=== PATIENT | female | born 1995 | race Caucasian/White ===

== ENCOUNTER 2024-04-10 12:38 | Emergency (ER) | payer OTHER, SELFPAY ==
--- OUTSIDE RECORDS SUMMARY | 2024-04-10 12:44 | XMS REPORT | Continuity of Care Document ---
Author Name Unknown Address [address] [place] [address] [address] [facility] Address [address] [facility] 1 [address] [place] [address] Care Team Providers Care Child Health Associate Name Role Phone PCP, PATIENT DOES NOT HAVE A Primary Care Physic nelida Unavailable VITO PEDROZA Attending Clinician Unavail able MCKAYLA AYERS Attending Clinician Unavaila ble Visit, Elisa Nurse Attending Clinician Unava Mckayla Williamson CNM Attending Clinician [phone] TAE JANG Attending Clinician Unavailabl Tae Santos MD Attending Clinician [phone] Tom Walker MD, Mike Attending Clinician + Kimberlyn Pena MD Attending Clinician [phone] Mekhi COHEN, Jonelle Garcia Attending Clinicia n NAEEM CANALES Attending Clinician Unavailable Vito Solomon Attending Clinician + Lab, Elisa Attending Clinician Unavailable DEAN LARSON Attending Clinician Unavailable Risk, Qda-Qcouk-Gc/High Attending Clinician Unav ailable Dean Miner Attending Clinician [phone] TIERNEY PALOMO Attending Clinician Unavailable TIERNEY PALOMO Attending Clinician Unavailable 1, [facility] Attending Clinician Tierney Campos MD Attending Clinician [phone] CATARINA BENTLEY Attending Clinician CATARINA Bradford Attending Clinician Unavaildat e Doctor Unassigned, [place] Attending Clinician U navailable Lab, Ang - Db Attending Clinician Unavailable TOM BENJAMINGATITO, MIKE Attending Clinician Unav ailable DICANDRIA_LASHAWN Attending Clinician Yony Martel DO Attending Clinician [phone] TAE JANG Admitting Clinician Tae Tran MD Admitting Clinician [phone] MERY_LASHAWN Admitting Clinician Swapnil muse Payers Payer Name Policy Type Policy Number Effective Date Expirati on Date Source [facility] STATE [id number] 2016 00:00:00 [facility] [id number] 2017 00:00:00 [place] [id number] 2023 00:00:00 2023 00:00:00 Problems Condition Name Condition Details Condition Category Status Onset Date Resolution Date Last Treatment Date Treating Clinician Comments Source Pre-eclamp abisai without severe features in third trimester Pre-eclamp abisai without severe features in third trimester Disease Active 01-23 00:00: 00 [facility] 39 weeks gestation of 39 weeks gestation of Disease Active 01-22 00:00: 00 [facility] Morbid obesity with body mass index of 40.0-49.9 Morbid obesity with body mass index of 40.0-49.9 Disease Active 01-22 00:00: 00 [facility] Positive GBS test Positive GBS test Disease Active 01-08 00:00: 00 Overview: Formattin g of this note might be different from the original. Address intrapart [facility] Anemia of mother in , antepartum Anemia of mother in , antepartum Disease Active 5-23 00:00: 00 [facility] Abnormal maternal glucose tolerance, antepartum Abnormal maternal glucose tolerance, antepartum Disease Active 3-14 00:00: 00 Overview: Formattin g of this note might be different from the original. Passed 3hr [facility] Abnormal O'Erazo glucose challenge test, normal 3 hr GTT, antepartum Abnormal O'Erazo glucose challenge test, normal 3 hr GTT, antepartum Disease Active 314 00:00: 00 Overview: Formattin g of this note might be different from the original. Passed 3hr [facility] Gonorrhea affecting Gonorrhea affecting Disease Active 10-22 00:00: 00 Overview: Formattin g of this note might be different from the original. Adenike neg [facility] Trichomona l vaginitis in Trichomona l vaginitis in Disease Active 2022-08 00:00: 00 Overview: Formattin g of this note might be different from the original. Neg adenike [facility] GBS (group B streptococ cus) UTI complicati ng GBS (group B streptococ cus) UTI complicati ng Disease Active 2022-08 00:00: 00 Overview: Formattin g of this note might be different from the original. Adenike neg [facility] Supervisio n of high-risk Supervisio n of high-risk Disease Active 2022-08 00:00: 00 [facility] History of miscarriag e History of miscarriag e Disease Active 2022-08 00:00: 00 [facility] History of drug use History of drug use Disease Active 2022-08 00:00: 00 Overview: Formattin g of this note might be different from the original. Marijuana , methLast used 2x months ago [facility] Pain pelvic Pain pelvic Disease Active 2016-08 00:00: 00 [facility] Cyst of right ovary Cyst of right ovary Disease Active 2016-08 00:00: 00 [facility] Overweight (BMI 25.0-29.9) Overweight (BMI 25.0-29.9) Disease Active 09-23 00:00: 00 [facility] Obesity in Obesity in Disease Active 2017-0 2-10 00:00: 00 [facility] Encounter for contracept bala management , unspecifie d type Encounter for contracept bala management , unspecifie d type Disease Resolve d 2016- 0-10 00:00: 00 2023-07-10 00:00:00 2023-07-10 13:53:38 [facility] Chlamydia infection affecting Chlamydia infection affecting Disease Resolve d 2-13 00:00: 00 2023-07-10 00:00:00 2023-07-10 13:53:45 [facility] High risk , antepartum High risk , antepartum Disease Resolve d 2-10 00:00: 00 2023-07-10 00:00:00 2023-07-10 13:53:37 [facility] Allergies, Adverse Reactions, Alerts Allergy Name Allergy Type Status Severity Reaction(s) Onset Date Inactive Date Treating Clinician Comments Source NO KNOWN ALLERGIE S Drug Class Active [facility] Social History Social Habit Start Date Stop Date Quantity Comments Source ASSERTION 2023-05-09 00:00:00 [facility] History of tobacco use 2013-09-23 00:00:00 Cigarette Smoker [facility] Exposure to SARS-CoV-2 (event) Not sure [facility] History SDOH Alcohol Frequency [facility] History SDOH Alcohol Std Drinks [facility] History SDOH Alcohol Binge [facility]-years 2024-02-01 00:00:00 2024-02-01 00:00:00 [facility] Alcoholic beverage intake 2024-02-01 00:00:00 2024-02-01 00:00:00 Ex-drinker (finding) [facility] Cigarettes smoked current (pack per day) - Reported 2024-02-01 00:00:00 2024-02-01 00:00:00 [facility] Tobacco use and exposure 2024-02-01 00:00:00 2024-02-01 00:00:00 Smokeless tobacco non-user [facility] History of Social function 2024-01-26 00:00:2024-01-26 00:00:00 [facility] Alcohol intake 2023-10-25 00:00:00 2023-10-25 00:00:00 Ex-drinker (finding) [facility] Alcohol Comment 2016-09-23 00:00:00 2016-09-23 00:00:00 lst drank 3 days ago. [facility] Sex assigned at 1995 00:00:00 1995 00:00:00 [facility] Smoking Status Start Date Stop Date Source Ex-smoker 2024-02-01 00:00:00 2024-02-01 00:00:00 [facility] Occasional tobacco smoker 2016-09-23 00:00:00 [facility] Medications Ordered Medication Name Filled Medication Name Start Date Stop Date Current Medication? Ordering Clinician Indication Dosage Frequency Signature (SIG) Comments Components Source docusate (COLACE) capsule 200 mg 01-25 14:00: 00 Yes 200mg 200 mg, Oral, DAILY, First dose on Mon01/26/24 at 0900, Until Discontinu ed, Routine [facility] vitamin w/FA tablet 01-25 00:00: 00 Yes [id number] 1{tbl} Take 1 tablet by mouth in the morning. [facility] docusate 100 mg capsule 01-25 00:00: 00 Yes [id number] 200mg Take 2 capsules by mouth once daily as needed for Constipati on. [facility] ferrous sulfate 325 mg (65 mg iron) tablet 01-25 00:00: 00 Yes [id number] 325mg Take 1 tablet by mouth in the morning. [facility] ibuprofen 800 mg tablet 01-25 00:00: 00 Yes [id number] 800mg Take 1 tablet by mouth every 8 (eight) hours as needed (pain). Take with food or milk. [facility] acetaminoph en 500 mg tablet 01-25 00:00: 00 Yes [id number] 1000mg Take 2 tablets by mouth every 8 (eight) hours as needed for Pain. [facility] oxyCODONE 5 mg immediate release tablet 01-25 00:00: 00 02-02 04:59 :00 Yes [id number] 5mg Take 1 tablet by mouth every 6 (six) hours as needed (pain) for up to 7 days. Indication s: acute pain [facility] simethicone (GAS RELIEF (SIMETHICON E)) chewable tablet 160 mg 01-24 19:00: 00 Yes 160mg 160 mg, Oral, TID, First dose on Mon01/25/24 at 1400, Until Discontinu ed, Routine [facility] ibuprofen (IBU) tablet 800 mg 01-24 18:00: 00 Yes 800mg 800 mg, Oral, Q8HA1, First dose on Mon01/25/24 at 1300, Until Discontinu ed, Routine [facility] acetaminoph en (TYLENOL) tablet 1,000 mg 01-24 15:15: 00 Yes 1000mg 1,000 mg, Oral, Q8H, First dose on Mon01/25/24 at 1015, Until Discontinu ed, Routine [facility] rho(D) immune globulin (HYPERRHO/R HOGAM) syringe 300 mcg 01-24 15:09: 57 Yes 300ug [facility] oxyCODONE immediate release tablet 5 mg 01-24 15:09: 50 Yes 5mg 5 mg, Oral, Q6HPRN, Starting on Mon01/25/24 at 1009, Until Discontinu ed, Routine, Pain (scale 7-10), seafood 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 member approving Restricted medication : OBYWHITE [facility] diphenhydrA MINE (BENADRYL) injection 25 mg 01-24 15:09: 50 Yes 25mg [facility] diphenhydrA MINE (BENADRYL) tablet 25 mg 01-24 15:09: 50 Yes 25mg [facility] ondansetron (ZOFRAN (PF)) injection 4 mg 01-24 15:09: 50 Yes 4mg 4 mg, Slow IV Push, Q8HPRN, Starting on Mon01/25/24 at 1009, Until Discontinu ed, Routine, Nausea and Vomiting (N/V) [facility] bisacodyL (DULCOLAX) suppository 10 mg 01-24 15:09: 50 Yes 10mg [facility] magnesium hydroxide (MILK OF MAGNESIA) 400 mg/5 mL suspension 30 mL 01-24 15:09: 50 Yes 30mL [facility] lactated ringers IV infusion 1,000 mL 01-24 15:09: 50 01-24 21:13 :00 No 1000mL at 125 mL/hr, 1,000 mL, IV Infusion, PRN, 1 dose, Starting on Beth 01/25/24 at 1009, Until Beth 01/25/24 at 1613, Routine [facility] ketorolac (TORADOL) injection 30 mg 01-24 15:05: 38 01-24 17:46 :00 No 30mg 30 mg, Slow IV Push, PRN, 1 dose, Starting on Beth 01/25/24 at 1005, Until Beth 01/25/24 at 1246, Routine, Pain (scale 4-6) [facility] naloxone (NARCAN) injection 0.4 mg 01-24 14:56: 20 01-26 14:55 :20 Yes .4mg 0.4 mg, Slow IV Push, PRN - SEE INSTRUCTIO NS, Starting on Beth 01/25/24 at 0956, Until 01/27/24 at 0955, Routine, Sedation/R espiratory Depression , Analgesia Recovery [facility] diphenhydrA MINE (BENADRYL) injection 25 mg 01-24 14:56: 20 01-25 23:55 :37 Yes 25mg 25 mg, Slow IV Push, Q4HPRN, Starting on Beth 01/25/24 at 0956, Until Mon01/26/24 at 1855, Routine, Itching [facility] sodium citrate-cit shane acid (BICITRA) 500-334 mg/5 mL solution 30 mL 01-24 14:00: 00 01-24 13:28 :00 No 30mL 30 mL, Oral, ONCE, 1 dose, On Mon01/25/24 at 0900, Routine [facility] acetaminoph en (TYLENOL) tablet 1,000 mg 01-24 13:09: 00 01-24 13:28 :00 No 1000mg 1,000 mg, Oral, ONCE, 1 dose, On Mon01/25/24 at 0815, Routine [facility] ondansetron (ZOFRAN (PF)) injection 4 mg 01-24 01:45: 00 01-24 01:08 :00 No 4mg 4 mg, Slow IV Push, ONCE, On Mon01/24/24 at 2044, For 1 dose, Doses of ondansetro n 16 mg and above need to be administer ed via IV piggyback. For Dose >=24mg ECG monitoring is advisable. [facility] acetaminoph en (TYLENOL) tablet 1,000 mg 01-24 01:45: 00 01-24 01:07 :00 No 1000mg 1,000 mg, Oral, ONCE, 1 dose, On Mon01/24/24 at 2045, Routine [facility] terbutaline (BRETHINE) injection 0.25 mg 01-23 15:30: 00 01-23 14:35 :00 No .25mg 0.25 mg, Intravenou s, ONCE, 1 dose, On Mon01/24/24 at 1030, Routine [facility] ondansetron (ZOFRAN (PF)) injection 4 mg 01-23 10:45: 00 01-23 10:00 :00 No 4mg 4 mg, Slow IV Push, ONCE, On Mon01/24/24 at 0545, For 1 dose, Doses of ondansetro n 16 mg and above need to be administer ed via IV piggyback. For Dose >=24mg ECG monitoring is advisable. [facility] alum-mag hydroxide-s imeth (MAG-AL PLUS) 200-200-20 mg/5 mL suspension 30 mL 01-23 06:25: 06 01-24 16:25 :51 No 30mL 30 mL, Oral, Q6HPRN, Starting on Mon01/24/24 at 0125, Until Mon01/25/24 at 1125, Routine, Indigestio n [facility] oxytocin (PITOCIN) 30 units in NS 500 mL IV infusion 01-23 05:47: 02 01-24 13:48 :31 No 2mU/min at 2-40 mL/hr, IV Infusion, TITRATE, Starting on Mon01/24/24 at 0047, Until Mon01/25/24 at 0848, MARY [facility] lactated ringers IV infusion 500 mL 01-23 02:00: 00 01-23 01:49 :40 No 500mL at 999 mL/hr, 500 mL, IV Infusion, ONCE, 1 dose, On Mon01/23/24 at 2100, Routine [facility] ondansetron (ZOFRAN (PF)) injection 4 mg 01-23 01:45: 00 01-23 00:55 :00 No 4mg 4 mg, Slow IV Push, ONCE, On Mon01/23/24 at 2044, For 1 dose, Doses of ondansetro n 16 mg and above need to be administer ed via IV piggyback. For Dose >=24mg ECG monitoring is advisable. [facility] ropivacaine 0.2 % (NAROPIN (PF)) epidural infusion 01-23 01:41: 00 Yes Epidural, CONTINUOUS PRN, Starting on Mon01/23/24 at 2040, Until Discontinu ed, Routine, Intra-op [facility] lidocaine-e pinephrine (XYLOCAINE W/EPINEPHRI NE) 1.5 %-1:200,000 injection 01-23 01:36: 00 Yes Epidural, ONCE INTRA PROCEDURE, Starting on Mon01/23/24 at 2035, Until Discontinu ed, Routine, Intra-op [facility] lidocaine in NaCl,iso-os mo(PF) 100 mg/10 mL (1 %) injection syringe 01-23 01:25: 00 Yes Slow IV Push, ONCE INTRA PROCEDURE, Starting on Mon01/23/24 at 2025, Until Discontinu ed, Routine, Intra-op [facility] lactated ringers IV infusion 500 mL 01-23 01:09: 14 01-23 14:40 :49 No 500mL at 999 mL/hr, 500 mL, IV Infusion, PRN - SEE INSTRUCTIO NS, 1 dose, Starting on Mon01/23/24 at 2008, Until Mon01/24/24 at 0940, Routine [facility] sodium citrate-cit shane acid (BICITRA) 500-334 mg/5 mL solution 30 mL 01-23 01:09: 14 01-23 01:18 :00 No 30mL 30 mL, Oral, PRE-PROCED URE ONCE, 1 dose, Starting on Mon01/23/24 at 2008, Until Mon01/23/24 at 2018, Routine, Surgery/Pr ocedure [facility] morpHINE (2 mg/mL) injection 5 mg 01-23 00:30: 00 01-22 23:50 :00 No 5mg 5 mg, Slow IV Push, ONCE, 1 dose, On Mon01/23/24 at 1930, Routine [facility] misoprostol (CYTOTEC) quarter-tab let 25 mcg 01-22 23:45: 00 01-22 23:45 :00 No 25ug 25 mcg, Vaginal, ONCE, 1 dose, On Mon01/23/24 at 1845, Routine [facility] lactated ringers IV infusion 500 mL 01-22 22:07: 10 01-24 16:25 :51 No 500mL at 999 mL/hr, 500 mL, IV Infusion, PRN - SEE INSTRUCTIO NS, Starting on Mon01/23/24 at 1707, Until Beth 01/25/24 at 1125, Routine [facility] D5W-LR IV infusion 1,000 mL 01-22 22:07: 10 01-24 16:25 :51 No 1000mL at 1-125 mL/hr, IV Infusion, TITRATE, Starting on Mon01/23/24 at 1707, Until Mon01/25/24 at 1125, Routine [facility] ferrous sulfate 325 mg (65 mg iron) tablet 01-03 00:00: 00 01-25 00:00 :00 No [id number] 325mg Take 1 tablet by mouth in the morning and 1 tablet in the evening. [facility] ascorbic acid, vitamin C, 500 mg tablet 01-03 00:00: 00 01-25 00:00 :00 No [id number] 500mg Take 1 tablet by mouth in the morning and 1 tablet at noon and 1 tablet in the evening. [facility] cefTRIAXone (ROCEPHIN) injection 500 mg 10-23 05:00: 00 10-24 19:18 :00 No [id number] 500mg 500 mg, Intramuscu lar, ONCE, 1 dose, On Mon10/24/23 at 0000, Routine
Reason for Anti-Infec tive: Documented Infection< br>Documen emre Infection Site: Pelvic
Duration of Therapy: Other (see Comments) [facility] magnesium oxide 400 mg (241.3 mg magnesium) tablet 09-27 00:00: 00 12-26 04:59 :00 No [id number] 400mg Take 1 tablet by mouth in the morning for 90 days. [facility] PNV 67-iron ps-folate no.1-dha (VITAFOL ULTRA) 29 mg iron- 1 mg-200 mg Cap 09-27 00:00: 00 10-27 04:59 :00 No [id number] 1{tbl} Take 1 tablet by mouth in the morning for 30 days. [facility] metroNIDAZO LE 500 mg tablet 09-13 00:00: 00 09-14 05:59 :00 No [id number] 2000mg Take 4 tablets by mouth once now for 1 dose. [facility] vitamin w/FA tablet 2022-08 00:00: 00 2024- 06-14 00:00 :00 No [id number] 1{tbl} Take 1 tablet by mouth in the morning. [facility] metroNIDAZO LE 500 mg tablet 2022-08 2-06 00:00: 00 07-20 05:59 :00 No [id number] 2000mg Take 4 tablets by mouth once now for 1 dose. [facility] ampicillin 500 mg capsule 2022-08 00:00: 00 07-23 05:59 :00 No [id number] 500mg Take 1 capsule by mouth 4 (four) times daily for 10 days. [facility] multivitami n ( VITAMIN) tablet 2022-08 00:00: 00 08-11 00:00 :00 No [id number] 1{tbl} Take 1 tablet by mouth in the morning. [facility] HYDROcodone -acetaminop hen (NORCO) 10-325 mg tablet 1 tablet 2019-08 16:15: 00 06-23 15:08 :00 No 1{tbl} 1 tablet, Oral, ONCE, 1 dose, 06/23/20 at 1015, Routine [facility] iohexol (OMNIPAQUE 350 BULK-150 mL) injection 120 mL 2019-08 15:15: 00 06-23 14:56 :00 No 120mL 120 mL, Intravenou s, ONCE, 1 dose, 06/23/20 at 0915, Routine [facility] ondansetron (ZOFRAN (PF)) injection 4 mg 2019-08 15:00: 00 06-23 14:08 :00 No 4mg 4 mg, Slow IV Push, ONCE, 1 dose, 06/23/20 at 0900, Routine [facility] alum-mag hydroxide-s imeth (MAALOX PLUS / MAG-AL PLUS) 200-200-20 mg/5 mL suspension 30 mL 2019-08 14:30: 00 06-23 14:30 :00 No 30mL 30 mL, Oral, ONCE, 1 dose, 06/23/20 at 0830, MARY [facility] NaCl 0.9% (NS) bolus infusion 500 mL 2019-08 14:00: 00 06-23 15:32 :00 No 500mL at 999 mL/hr, 500 mL, IV Infusion, ONCE, 1 dose, Mon06/23/20 at 0800, STAT [facility] sodium chloride (NS) injection 5 mL 2019-08 13:51: 36 Yes 5mL 5 mL, Intravenou s, PRN, Starting Mon06/23/20 at 0751, Until Discontinu ed, Routine, IV line flushing [facility] dicyclomine (BENTYL) 10 mg capsule 2019-08 00:00: 00 Yes [id number] 10mg Take 1 capsule by mouth every 8 (eight) hours as needed for Abdominal pain. [facility] ondansetron 4 mg disintegrat ing tablet 2019-08 00:00: 00 Yes [id number] 4mg Take 1 tablet by mouth every 8 (eight) hours as needed for Nausea and Vomiting (N/V). [facility] omeprazole 20 mg capsule 2019-08 00:00: 07-24 05:59 :00 No [id number] 20mg Take 1 capsule by mouth daily for 30 days. [facility] acetaminoph en-codeine (TYLENOL-CO DEINE #3) 300-30 mg tablet 2019-08 00:00: 00 06-27 05:59 :00 No [id number] 1{tbl} Take 1 tablet by mouth every 4 (four) hours as needed for Pain (scale 7-10) for up to 3 days. Indication s: acute pain [facility] naproxen 250 mg tablet 2016-08 00:00: 00 Yes [id number] 250mg Take 1 tablet by mouth 2 (two) times daily with meals. [facility] azithromyci n 500 mg tablet 09-26 00:00: 00 Yes 1000mg Take 2 tablets by mouth daily. [facility] Vit-Iron Fumarate-FA (RIGHT STEP VITAMINS) 27-0.8 mg per tablet 09-23 00:00: 00 Yes 1{tbl} Take 1 tablet by mouth daily. [facility] Vit-Iron Fumarate-FA (RIGHT STEP VITAMINS) 27-0.8 mg per tablet 09-23 00:00: 00 08-11 00:00 :00 No 1{tbl} Take 1 tablet by mouth daily. [facility] Immunizations Ordered Immunization Name Filled Immunization Name Date Status Comments Source TDAP Unknown Completed [facility] TDAP Unknown Completed [facility] TDAP Unknown Completed [facility] TDAP Unknown Completed [facility] TDAP Unknown Completed [facility] TDAP Unknown Completed [facility] TDAP Unknown Completed [facility] TDAP Unknown Completed [facility] TDAP Unknown Completed [facility] TDAP Unknown Completed [facility] TDAP Unknown Completed [facility] TDAP Unknown Completed [facility] TDAP Unknown Completed [facility] TDAP Unknown Completed [facility] TDAP Unknown Completed [facility] TDAP Unknown Completed [facility] Vital Signs Vital Name Observation Time Observation Value Comments S ource Systolic blood pressure 2024-02-01 15:18:00 138 mm[Hg] [facility] Diastolic blood pressure 2024-02-01 15:18:00 80 mm[Hg] [facility] Heart rate 2024-02-01 15:18:00 86 /min [facility] Body temperature 2024-02-01 15:18:00 36.44 [facility] Respiratory rate 2024-02-01 15:18:00 18 /min [facility] Body height 2024-02-01 15:18:00 162.6 cm [facility] Body weight 2024-02-01 15:18:00 101.742 kg [facility] BMI 2024-02-01 15:18:00 38.50 kg/m2 [facility] Systolic blood pressure 2024-01-26 20:47:00 122 mm[Hg] [facility] Diastolic blood pressure 2024-01-26 20:47:00 59 mm[Hg] [facility] Heart rate 2024-01-26 20:47:00 80 /min [facility] Body temperature 2024-01-26 20:47:00 36.83 [facility] Respiratory rate 2024-01-26 20:47:00 18 /min [facility] Oxygen saturation in Arterial blood by Pulse oximetry 2024-01-26 20:47:00 97 /min [facility] Body weight 2024-01-23 22:48:00 110.678 kg [facility] BMI 2024-01-23 22:48:00 41.88 kg/m2 [facility] Body height 2024-01-23 22:00:00 162.6 cm [facility] Systolic blood pressure 2024-01-25 16:32:00 134 mm[Hg] [facility] Diastolic blood pressure 2024-01-25 16:32:00 62 mm[Hg] [facility] Heart rate 2024-01-25 16:32:00 74 /min [facility] Body temperature 2024-01-25 16:32:00 36.5 [facility] Respiratory rate 2024-01-25 16:32:00 18 /min [facility] Oxygen saturation in Arterial blood by Pulse oximetry 2024-01-25 16:32:00 99 /min [facility] Body weight 2024-01-23 22:48:00 110.678 kg [facility] BMI 2024-01-23 22:48:00 41.88 kg/m2 [facility] Body height 2024-01-23 22:00:00 162.6 cm [facility] Systolic blood pressure 2024-01-17 20:43:00 132 mm[Hg] [facility] Diastolic blood pressure 2024-01-17 20:43:00 82 mm[Hg] [facility] Heart rate 2024-01-17 20:39:00 77 /min [facility] Body temperature 2024-01-17 20:39:00 35.94 [facility] Respiratory rate 2024-01-17 20:39:00 19 /min [facility] Body height 2024-01-17 20:39:00 157.5 cm [facility] Body weight 2024-01-17 20:39:00 107.82 kg [facility] BMI 2024-01-17 20:39:00 43.48 kg/m2 [facility] Systolic blood pressure 2024-01-10 20:37:00 130 mm[Hg] [facility] Diastolic blood pressure 2024-01-10 20:37:00 80 mm[Hg] [facility] Heart rate 2024-01-10 20:30:00 107 /min [facility] Body temperature 2024-01-10 20:30:00 35.83 [facility] Respiratory rate 2024-01-10 20:30:00 18 /min [facility] Body height 2024-01-10 20:30:00 157.5 cm [facility] Body weight 2024-01-10 20:30:00 104.055 kg [facility] BMI 2024-01-10 20:30:00 41.96 kg/m2 [facility] Systolic blood pressure 2024-01-03 20:17:00 123 mm[Hg] [facility] Diastolic blood pressure 2024-01-03 20:17:00 78 mm[Hg] [facility] Heart rate 2024-01-03 20:17:00 82 /min [facility] Body temperature 2024-01-03 20:17:00 36.17 [facility] Respiratory rate 2024-01-03 20:17:00 18 /min [facility] Body height 2024-01-03 20:17:00 157.5 cm [facility] Body weight 2024-01-03 20:17:00 102.15 kg [facility] BMI 2024-01-03 20:17:00 41.19 kg/m2 [facility] Systolic blood pressure 2023-12-20 20:34:00 124 mm[Hg] [facility] Diastolic blood pressure 2023-12-20 20:34:00 74 mm[Hg] [facility] Heart rate 2023-12-20 20:07:00 95 /min [facility] Body temperature 2023-12-20 20:07:00 36.17 [facility] Respiratory rate 2023-12-20 20:07:00 18 /min [facility] Body height 2023-12-20 20:07:00 157.5 cm [facility] Body weight 2023-12-20 20:07:00 100.245 kg [facility] BMI 2023-12-20 20:07:00 40.42 kg/m2 [facility] Oxygen saturation in Arterial blood by Pulse oximetry 2023-12-20 20:07:00 98 /min [facility] Systolic blood pressure 2023-12-07 19:56:00 138 mm[Hg] [facility] Diastolic blood pressure 2023-12-07 19:56:00 79 mm[Hg] [facility] Heart rate 2023-12-07 19:56:00 87 /min [facility] Body temperature 2023-12-07 19:56:00 35.83 [facility] Respiratory rate 2023-12-07 19:56:00 18 /min [facility] Body height 2023-12-07 19:56:00 157.5 cm [facility] Body weight 2023-12-07 19:56:00 96.163 kg [facility] BMI 2023-12-07 19:56:00 38.78 kg/m2 [facility] Systolic blood pressure 2023-11-23 19:53:00 130 mm[Hg] [facility] Diastolic blood pressure 2023-11-23 19:53:00 83 mm[Hg] [facility] Heart rate 2023-11-23 19:53:00 96 /min [facility] Body temperature 2023-11-23 19:53:00 35.89 [facility] Respiratory rate 2023-11-23 19:53:00 18 /min [facility] Body height 2023-11-23 19:53:00 157.5 cm [facility] Body weight 2023-11-23 19:53:00 93.26 kg [facility] BMI 2023-11-23 19:53:00 37.60 kg/m2 [facility] Systolic blood pressure 2023-11-08 20:07:00 118 mm[Hg] [facility] Diastolic blood pressure 2023-11-08 20:07:00 78 mm[Hg] [facility] Heart rate 2023-11-08 20:07:00 98 /min [facility] Body temperature 2023-11-08 20:07:00 35.72 [facility] Respiratory rate 2023-11-08 20:07:00 18 /min [facility] Body height 2023-11-08 20:07:00 157.5 cm [facility] Body weight 2023-11-08 20:07:00 89.268 kg [facility] BMI 2023-11-08 20:07:00 36.00 kg/m2 [facility] Systolic blood pressure 2023-10-25 19:00:00 129 mm[Hg] [facility] Diastolic blood pressure 2023-10-25 19:00:00 71 mm[Hg] [facility] Heart rate 2023-10-25 19:00:00 83 /min [facility] Body temperature 2023-10-25 19:00:00 36.17 [facility] Respiratory rate 2023-10-25 19:00:00 18 /min [facility] Body height 2023-10-25 19:00:00 157.5 cm [facility] Body weight 2023-10-25 19:00:00 86.183 kg [facility] BMI 2023-10-25 19:00:00 34.75 kg/m2 [facility] Systolic blood pressure 2023-10-20 16:52:00 118 mm[Hg] [place] [facility] Diastolic blood pressure 2023-10-20 16:52:00 70 mm[Hg] [facility] Heart rate 2023-10-20 16:52:00 79 /min [facility] Body temperature 2023-10-20 16:52:00 35.67 [facility] Respiratory rate 2023-10-20 16:52:00 18 /min [facility] Body height 2023-10-20 16:52:00 157.5 cm [facility] Body weight 2023-10-20 16:52:00 88.542 kg [facility] BMI 2023-10-20 16:52:00 35.70 kg/m2 [facility] Systolic blood pressure 2023-10-11 21:43:00 130 mm[Hg] [facility] Diastolic blood pressure 2023-10-11 21:43:00 64 mm[Hg] [facility] Heart rate 2023-10-11 21:43:00 78 /min [facility] Body temperature 2023-10-11 21:43:00 36.44 [facility] Respiratory rate 2023-10-11 21:43:00 18 /min [facility] Body height 2023-10-11 21:43:00 162.6 cm [facility] Body weight 2023-10-11 21:43:00 85.095 kg [facility] BMI 2023-10-11 21:43:00 32.20 kg/m2 [facility] Systolic blood pressure 2023-09-27 16:21:00 131 mm[Hg] [facility] Diastolic blood pressure 2023-09-27 16:21:00 80 mm[Hg] [facility] Heart rate 2023-09-27 16:21:00 95 /min [facility] Body temperature 2023-09-27 16:21:00 36.56 [facility] Respiratory rate 2023-09-27 16:21:00 18 /min [facility] Body height 2023-09-27 16:21:00 162.6 cm [facility] Body weight 2023-09-27 16:21:00 84.171 kg [facility] BMI 2023-09-27 16:21:00 31.85 kg/m2 [facility] Systolic blood pressure 2023-09-12 16:37:00 133 mm[Hg] [facility] Diastolic blood pressure 2023-09-12 16:37:00 72 mm[Hg] [facility] Heart rate 2023-09-12 16:37:00 92 /min [facility] Body temperature 2023-09-12 16:37:00 35.94 [facility] Respiratory rate 2023-09-12 16:37:00 18 /min [facility] Body height 2023-09-12 16:37:00 162.6 cm [facility] Body weight 2023-09-12 16:37:00 78.109 kg [facility] BMI 2023-09-12 16:37:00 29.56 kg/m2 [facility] Systolic blood pressure 2023-08-11 21:52:00 119 mm[Hg] [facility] Diastolic blood pressure 2023-08-11 21:52:00 66 mm[Hg] [facility] Heart rate 2023-08-11 21:52:00 76 /min [facility] Body temperature 2023-08-11 21:52:00 36.39 [facility] Respiratory rate 2023-08-11 21:52:00 17 /min [facility] Body height 2023-08-11 21:52:00 162.6 cm [facility] Body weight 2023-08-11 21:52:00 72.576 kg [facility] BMI 2023-08-11 21:52:00 27.46 kg/m2 [facility] Systolic blood pressure 2023-07-10 19:37:00 128 mm[Hg] [facility] Diastolic blood pressure 2023-07-10 19:37:00 72 mm[Hg] [facility] Heart rate 2023-07-10 19:37:00 83 /min [facility] Body temperature 2023-07-10 19:37:00 36.17 [facility] Respiratory rate 2023-07-10 19:37:00 18 /min [facility] Body height 2023-07-10 19:37:00 162.6 cm [facility] Body weight 2023-07-10 19:37:00 67.858 kg [facility] BMI 2023-07-10 19:37:00 25.68 kg/m2 [facility] Systolic blood pressure 2020-06-23 15:33:55 131 mm[Hg] [facility] Diastolic blood pressure 2020-06-23 15:33:55 82 mm[Hg] [facility] Heart rate 2020-06-23 15:33:55 67 /min [facility] Body temperature 2020-06-23 15:33:55 36.94 [facility] Respiratory rate 2020-06-23 15:33:55 17 /min [facility] Oxygen saturation in Arterial blood by Pulse oximetry 2020-06-23 15:33:55 100 /min [facility] Body height 2020-06-23 13:35:00 162.6 cm [facility] Body weight 2020-06-23 13:35:00 93.895 kg [facility] BMI 2020-06-23 13:35:00 35.53 kg/m2 [facility] Procedures Procedure Date / Time Performed Performing Clinician Source CBC WITH DIFF 2024-01-26 08:58:00 Elodia [facility] joselyn [facility] CBC WITH DIFF 2024-01-26 08:58:00 Elodia [facility] joselyn [facility] VENOUS CORD GAS 2024-01-25 14:15:00 Ana Luisa Alcantarshua [facility] VENOUS CORD GAS 2024-01-25 14:15:00 Brady Alcantar [facility] [address] - [place] DELIVERY ONLY 2024-01-25 13:25:00 Cee Barrera [facility] [address] - [place]IV[place] 2024-01-25 13:25:00 Cee Barrera [facility] SGOT (ASPARTATE AMINO TRANSFER) 2024-01-25 01:18:00 Jossy Douglas [facility] CREATININE 2024-01-25 01:18:00 MisaelJossy harden [facility] ALANINE AMINO TRANSFERASE(SGPT 2024-01-25 01:18:00 MisaelJossy harden [facility] LACTATE DEHYDROGENASE 2024-01-25 01:18:00 MisaelJossy harden [facility] URIC ACID 2024-01-25 01:18:00 MisaelJossy harden [facility] CBC WITH DIFF 2024-01-25 01:18:00 MisaelJossy [facility] URINALYSIS 2024-01-25 01:18:00 MisaelJossy harden [facility] PROTEIN CREAT RATIO URINE RANDOM 2024-01-25 01:18:00 Jossy Douglas [facility] SGOT (ASPARTATE AMINO TRANSFER) 2024-01-25 01:18:00 MisaelJossy harden [facility] CREATININE 2024-01-25 01:18:00 MisaelJossy harden [facility] ALANINE AMINO TRANSFERASE(SGPT 2024-01-25 01:18:00 MisaelJossy harden [facility] LACTATE DEHYDROGENASE 2024-01-25 01:18:00 MisaelJossy harden [facility] URIC ACID 2024-01-25 01:18:00 MisaelJossy harden [facility] CBC WITH DIFF 2024-01-25 01:18:00 MisaelJossy harden [facility] URINALYSIS 2024-01-25 01:18:00 MisaelJossy harden [facility] PROTEIN CREAT RATIO URINE RANDOM 2024-01-25 01:18:00 MisaelJossy del toro [facility] CENTRAL NEURAXIAL BLOCK 2024-01-24 01:40:00 Bianka Pena [facility] CBC WITH DIFF 2024-01-23 22:37:00 [facility] ANTIGEN 2024-01-23 22:37:00 Brady Alcantar [facility] HB ABO GROUPING 2024-01-23 22:37:00 Ana Luisa Alcantarshua [facility] RHO (D) IMMUNE GLOBULIN 2024-01-23 22:37:00 Sarah Powell [facility] HIV 1/2 AG-AB WITH REFLEX 2024-01-23 22:37:00 Brady Alcantar [facility] SYPHILIS IGG/IGM 2024-01-23 22:37:00 Brady Alcantar [facility] CBC WITH DIFF 2024-01-23 22:37:00 [facility] ANTIGEN 2024-01-23 22:37:00 Ana Luisa Alcantarshua [facility] HB ABO GROUPING 2024-01-23 22:37:00 Ana Luisa Alcantarshua [facility] RHO (D) IMMUNE GLOBULIN 2024-01-23 22:37:00 Onab Sarah abarca [facility] HIV 1/2 AG-AB WITH REFLEX 2024-01-23 22:37:00 Ana Luisa Alcantarshua [facility] SYPHILIS IGG/IGM 2024-01-23 22:37:00 Brady Alcantar [facility] POCT URINALYSIS 2024-01-17 00:00:00 Mckayla Ayers [facility] POCT URINALYSIS GLUCOSE & PROTEIN 2023-12-20 19:54:00 Vito Pedroza [facility] POCT URINALYSIS 2023-12-07 19:57:00 Mckayla Ayers [facility] TDAP VACCINE, >11 YRS, IM 2023-11-08 20:44:00 Vito Pedroza [facility] POCT URINALYSIS 2023-10-25 19:43:00 Mckayla Ayers [facility] POCT URINALYSIS 2023-10-20 16:57:00 Mckayla Ayers [facility] POCT URINALYSIS 2023-10-11 22:07:00 Mcakyla Ayers [facility] POCT URINALYSIS 2023-09-27 16:27:00 Mckayla Ayers [facility] SECOND AND THIRD TRIMESTER ULTRASOUND 2023-09-21 17:45:00 Vito Pedroza [facility] SCANNED LAB RESULTS 2023-08-15 06:01:00 Doctor Rick davis, [place] [facility] ALPHA FETOPROTEIN-MATERNAL SER 2023-08-11 22:20:00 Catarina Bentley [facility] URINE CULTURE 2023-08-11 22:20:00 [facility] PO[facility] URINAL[facility] W/O SPECIFIC GRAVITY 2023-08-11 21:40:00 Catarina Bentley [facility] SECOND AND THIRD TRIMESTER ULTRASOUND 2023-08-01 17:46:00 Vito Pedroza [facility] POCT URINALYSIS 2023-07-10 20:42:00 Vito Pedroza [facility] GC & CHLAMYDIA AMPLIFIED ASSAY 2023-07-10 20:41:00 Vito Pedroza [facility] PAP SMEAR-LIQUID BASED-CP 2023-07-10 20:41:00 Vito Pedroza [facility] GLUCOSE 1 HOUR POST PRANDIAL 2023-07-10 20:40:00 Vito Pedroza [facility] CBC WITH DIFF 2023-07-10 20:40:00 Vito Pedroza [facility] RUBELLA SCREEN IGG 2023-07-10 20:40:00 Kiersten Pedroza [facility] HEPATITIS B SURFACE ANTIGEN 2023-07-10 20:40:00 Vito Pedroza [facility] HB ABO GROUPING 2023-07-10 20:40:00 Vito Pedroza [facility] HIV 1/2 AG-AB WITH REFLEX 2023-07-10 20:40:00 Vito Pedroza [facility] SYPHILIS IGG/IGM 2023-07-10 20:40:00 Morena Pedroza [facility] POCT TEST 2023-07-10 20:09:00 Gunnar Pedroza [facility] ASSIGNMENT OF BENEFITS 2023-07-10 19:03:05 Docto r Unassigned, [place] [facility] VACCINATIONS - CONSENTS, ELIGIBILITY, HISTORY 2022-03-21 05:01:00 Doctor Unassigned, [place] [facility] CT ABDOMEN PELVIS W CONTRAST 2020-06-23 15:01:52 Yony Adler [facility] POCT TEST 2020-06-23 13:58:00 Zaira Adler [facility] URINALYSIS 2020-06-23 13:55:00 [facility] POCT TEST 2020-06-23 13:55:00 Zaira Adler [facility] LIPASE 2020-06-23 13:54:00 Singer [facility] COMP. METABOLIC PANEL (02354) 2020-06-23 13:54:00 Yony Adler [facility] LIPID PANEL (20213)(TOTAL CHOLESTEROL, TRIGLYCERIDES, HDL) 2020-06-23 13:54:00 Singer Yony [facility] CBC WITH DIFF 2020-06-23 13:54:00 Yony Adler [facility] Encounters Start Date/Time End Date/Time Encounter Type Admission Type Attending [facility] Care Facility Care Department Encounter ID Source 2021-06-12 04:18:26 Emergency [facility] [id number] [facility] 2024-03-06 13:30:00 2024-03-06 13:30:00 Outpatient VITO GODOY [facility] [id number] [facility] 2024-02-01 10:00:00 2024-02-01 10:28:49 Outpatient MCKAYLA MCMULLEN [facility] [id number] [facility] 2024-02-01 10:00:00 2024-02-01 10:28:49 Nurse Visit [facility], [facility] Mckayla Ayers [facility] DETAIL ASSEMBLER [facility] MATERNAL & CHILD [facility] 1.2.840.114 350.1.13.10 4.2.7.2.686 [id number] 107 [id number] [facility] 2024-01-23 16:45:00 2024-01-26 17:32:00 Inpatient P TAE JANG [facility] JACQUELINE [id number] [facility] 2024-01-23 16:45:00 2024-01-26 17:32:00 Hospital Encounter Tae Jang [facility] 1.2.840.114 350.1.13.10 4.2.7.2.686 [id number] [facility] 2024-01-25 10:10:00 2024-01-25 12:18:[address] [facility] 1.2.840.114 350.1.13.10 4.2.7.2.686 [id number] [facility] 2024-01-23 20:17:00 2024-01-23 20:17:00 Anesthesia Event Kimberlyn Pena Allison Elizabeth [facility] 1.2.840.114 350.1.13.10 4.2.7.2.686 [id number] [facility] 2024-01-17 15:15:00 2024-01-17 16:05:29 Outpatient R VITO PEDROZA [facility] [id number] [facility] 2024-01-17 15:15:00 2024-01-17 16:05:29 Routine Visit Vito Pedroza [facility] DETAIL ASSEMBLER [facility] MATERNAL & CHILD [facility] 1.2.840.114 350.1.13.10 4.2.7.2.686 [id number] 107 [id number] [facility] 2024-01-10 15:30:00 2024-01-10 16:00:40 Outpatient R VITO PEDROZA [facility] [id number] [facility] 2024-01-10 15:30:00 2024-01-10 16:00:40 Routine Visit ClararenataVito Parul [facility] DETAIL ASSEMBLER [facility] MATERNAL & CHILD [facility] 1.2.840.114 350.1.13.10 4.2.7.2.686 [id number] 107 [id number] [facility] 2024-01-04 00:00:00 2024-01-04 16:24:17 Telephone YovanyVito [facility] DETAIL ASSEMBLER [facility] MATERNAL & CHILD [facility] 1.2.840.114 350.1.13.10 4.2.7.2.686 [id number] 107 [id number] [facility] 2024-01-03 15:00:00 2024-01-03 15:45:11 Outpatient R VITO PEDROZA [facility] [id number] [facility] 2024-01-03 15:00:00 2024-01-03 15:45:11 Routine Visit Yovany Vito Parul [facility] DETAIL ASSEMBLER [facility] MATERNAL & CHILD [facility] 1.2.840.114 350.1.13.10 4.2.7.2.686 [id number] 107 [id number] [facility] 2023-12-20 15:00:00 2023-12-20 15:15:00 Routine Visit Clararenata Vito Teran [facility] DETAIL ASSEMBLER [facility] & CHILD [facility] 1.2.840.114 350.1.13.10 4.2.7.2.686 [id number] [facility] 2023-12-20 15:00:00 2023-12-20 15:00:00 Outpatient R MAIKELMARLEERENATA VITO [facility] [id number] [facility] 2023-12-07 15:00:00 2023-12-07 15:15:00 Routine Visit Yovany Vito Parul [facility] DETAIL ASSEMBLER [facility] & CHILD [facility] .840.114 350.1.13.10 4.2.7.2.686 [id number] 107 [id number] [facility] 2023-12-07 15:00:00 2023-12-07 15:00:00 Outpatient R VITO PEDROZA [facility] [id number] [facility] 2023-11-23 15:00:00 2023-11-23 15:29:24 Outpatient R VITO PEDROZA [facility] [id number] [facility] 2023-11-23 15:00:00 2023-11-23 15:29:24 Routine Visit Jesus Pedrozailola Parul [facility] DETAIL ASSEMBLER [facility] & CHILD [facility] .840.114 350.1.13.10 4.2.7.2.686 [id number] 107 [id number] [facility] 2023-11-08 15:15:00 2023-11-08 15:54:28 Outpatient R VITO PEDROZA [facility] [id number] [facility] 2023-11-08 15:15:00 2023-11-08 15:54:28 Routine Visit MaikelVito paez Parul [facility] DETAIL ASSEMBLER [facility] & CHILD [facility] 1.840.114 350.1.13.10 4.2.7.2.686 [id number] 107 [id number] [facility] 2023-10-30 08:00:00 2023-10-30 08:15:00 Seamless Hosiery Knitter Visit Lab, Ang-Rmchp Vito Pedroza Parul [facility] DETAIL ASSEMBLER [facility] CHILD [facility] .840.114 350.1.13.10 4.2.7.2.686 [id number] 107 [id number] [facility] 2023-10-30 08:00:00 2023-10-30 08:00:00 Outpatient R CLARARENATAVITO [facility] [id number] [facility] 2023-10-26 00:00:00 2023-10-26 00:00:00 Telephone Vito Pedroza [facility] DETAIL ASSEMBLER [facility] & CHILD [facility] 1.2.840.114 350.1.13.10 4.2.7.2.686 [id number] 107 [id number] [facility] 2023-10-25 14:15:00 2023-10-25 14:32:04 Outpatient R VITO PEDROZA [facility] [id number] [facility] 2023-10-25 14:15:00 2023-10-25 14:32:04 Routine Visit Vito Pedroza [facility] 1.2.840.114 350.1.13.10 4.2.7.2.686 [id number] 107 [id number] [facility] 2023-10-23 00:00:00 2023-10-23 00:00:00 Case Management Mckayla Ayers [facility] DETAIL ASSEMBLER [facility] CHILD [facility] 1.2.840.114 350.1.13.10 4.2.7.2.686 [id number] 107 [id number] [facility] 2023-10-23 00:00:00 2023-10-23 00:00:00 Telephone Mckayla Ayers [facility] DETAIL ASSEMBLER [facility] & CHILD [facility] 1.2.840.114 350.1.13.10 4.2.7.2.686 [id number] 107 [id number] [facility] 2023-10-20 11:00:00 2023-10-20 11:14:26 Outpatient R MCKAYLA AYERS [facility] [id number] [facility] 2023-10-20 11:00:00 2023-10-20 11:14:26 Routine Visit Mckayla Ayers [facility] DETAIL ASSEMBLER [facility] & CHILD [facility] 1.2.840.114 350.1.13.10 4.2.7.2.686 [id number] 107 [id number] [facility] 2023-10-11 15:45:00 2023-10-11 16:03:45 Outpatient R DEAN LARSON [facility] [id number] [facility] 2023-10-11 15:45:00 2023-10-11 16:03:45 Routine Visit Risk, Ang-Rmchp-N p/High Dean Larson [facility] DETAIL ASSEMBLER [facility] MATERNAL & CHILD [facility] 1..840.114 350.1.13.10 4.2.7.2.686 [id number] 107 [id number] [facility] 2023-10-11 08:45:00 2023-10-11 08:45:00 Outpatient R [facility] [id number] [facility] 2023-09-27 10:30:00 2023-09-27 10:58:47 Outpatient R DEAN LARSON [facility] [id number] [facility] 2023-09-27 10:30:00 2023-09-27 10:58:47 Routine Visit Risk, Ang-Rmchp-N p/High Dean Larson [facility] DETAIL ASSEMBLER [facility] MATERNAL & CHILD [facility] 1..840.114 350.1.13.10 4.2.7.2.686 [id number] 107 [id number] [facility] 2023-09-26 00:00:00 2023-09-26 00:00:00 Abstract Vito Pedroza [facility] DETAIL ASSEMBLER [facility] MATERNAL & CHILD [facility] 1..840.114 350.1.13.10 4.2.7.2.686 [id number] 107 [id number] [facility] 2023-09-21 11:00:00 2023-09-21 11:42:57 Outpatient P TIERNEY PALOMO SHANNON [facility] [id number] [facility] 2023-09-21 11:00:00 2023-09-21 11:42:57 Seamless Hosiery Knitter Visit 1, Hossein-m Room Tierney Palomo [facility] DETAIL ASSEMBLER [facility] MATERNAL & CHILD [facility] 1.2.840.114 350.1.13.10 4.2.7.2.686 [id number] [facility] 2023-09-13 00:00:00 2023-09-13 00:00:00 Telephone Vito Pedroza [facility] DETAIL ASSEMBLER [facility] & CHILD [facility] 1.2840.114 350.1.13.10 4.2.7.2.686 [id number] 107 [id number] [facility] 2023-09-13 00:00:00 2023-09-13 00:00:00 Telephone Vito Pedroza [facility] DETAIL ASSEMBLER [facility] & CHILD [facility] 1.840.114 350.1.13.10 4.2.7.2.686 [id number] 107 [id number] [facility] 2023-09-12 11:00:00 2023-09-12 11:21:56 Outpatient R VITO PEDROZA [facility] [id number] [facility] 2023-09-12 11:00:00 2023-09-12 11:21:56 Routine Visit Vito Pedroza [facility] DETAIL ASSEMBLER [facility] & CHILD [facility] 1.0.114 350.1.13.10 4.2.7.2.686 [id number] [facility] 2023-09-02 00:00:00 2023-09-02 00:00:00 Patient Secure Msg Vito Pedroza [facility] DETAIL [facility] 1.2.840.114 350.1.13.10 4.2.7.2.686 [id number] [facility] 2023-08-25 00:00:00 2023-08-25 00:00:00 Patient Secure Msg Doctor Unassigned, [place] [facility] 1..114 350.1.13.10 4.2.7.2.686 [id number] [facility] 2023-08-15 11:15:00 2023-08-15 12:14:45 Seamless Hosiery Knitter Visit Lab, Catarina Miner [facility] 1..114 350.1.13.10 4.2.7.2.686 [id number] [facility] 2023-08-15 10:30:00 2023-08-15 11:47:31 Outpatient MCKAYLA MCMULLEN [facility] [id number] [facility] 2023-08-15 10:30:00 2023-08-15 11:47:31 Seamless Hosiery Knitter Visit Lab, LeonieRmchp Mckayla Ayers [facility] DETAIL [facility]SEMBLER [facility] 1.0.114 350.1.13.10 4.2.7.2.686 [id number] [facility] 2023-08-15 00:00:00 2023-08-15 00:00:00 Orders Only Doctor Unassigned, [place] [facility] 1..114 350.1.13.10 4.2.7.2.686 [id number] [facility] [facility] 2023-08-11 15:30:00 2023-08-11 16:17:55 Outpatient R CATARINA BENTLEY MARYANN [facility] [id number] [facility] 2023-08-11 15:30:00 2023-08-11 16:17:55 Routine Visit Catarina Bentley [facility] DETAIL ASSEMBLER [facility] MATERNAL & CHILD [facility]ALTH [facility] 1..114 350.1.13.10 4.2.7.2.686 [id number] [facility] 2023-08-09 12:45:00 2023-08-09 12:45:00 Outpatient R VITO PEDROZA [facility] [id number] [facility] 2023-08-04 00:00:00 2023-08-04 00:00:00 Abstract Vito Pedroza [facility] DETAIL ASSEMBLER [facility]ILD [facility] 1.2.840.114 350.1.13.10 4.2.7.2.686 [id number] [facility] 2023-08-01 11:15:00 2023-08-01 11:41:47 Outpatient P CEE LOOMIS [facility] [id number] [facility] 2023-08-01 11:15:00 2023-08-01 11:41:47 Seamless Hosiery Knitter Visit 1, [facility] Room Cee Loomis [facility] DETAIL ASSEMBLER [facility] 1.840.114 350.1.13.10 4.2.7.2.686 [id number] [facility] 2023-07-27 00:00:00 2023-07-27 00:00:00 Telephone Vito Pedroza [facility] DETAIL ASSEMBLER [facility] 1.2.840.114 350.1.13.10 4.2.7.2.686 [id number] [facility] 2023-07-19 00:00:00 2023-07-19 00:00:00 Telephone Vito Pedroza [facility] DETAIL ASSEMBLER [facility] & CHILD [facility] 1.2840.114 350.1.13.10 4.2.7.2.686 [id number] [facility] 2023-07-12 00:00:00 2023-07-12 00:00:00 Telephone Vito Pedroza [facility] DETAIL ASSEMBLER [facility] 1.2.840.114 350.1.13.10 4.2.7.2.686 [id number] [facility] 2023-07-10 13:45:00 2023-07-10 14:43:27 Initial Visit MaikelVito paez Parul [facility] DETAIL ASSEMBLER [facility] & CHILD [facility] 1.2.840.114 350.1.13.10 4.2.7.2.686 [id number] [facility] 2023-07-10 13:15:00 2023-07-10 13:27:12 Outpatient R MAIKELCARRIEKIERSTENVITO [facility] [id number] [facility] 2023-07-10 00:00:00 2023-07-10 00:00:00 Orders Only Doctor Unassigned, [place] [facility] 1.2.840.114 350.1.13.10 4.2.7.2.686 [id number] [facility] 2022-03-21 00:00:00 2022-03-21 00:00:00 Orders Only Doctor Unassigned, [place] [facility] 1.2.840.114 350.1.13.10 4.2.7.2.686 [id number] [facility] 2022-02-23 03:04:00 2022-02-23 03:04:00 Outpatient RACQUEL CASTELAN [facility] [id number] [facility] 2020-06-23 07:34:00 2020-06-23 09:41:00 Emergency Yony Adler [facility] 1.2.840.114 350.1.13.10 4.2.7.2.686 [id number] [facility] Results Test Description Test Time Test Comments Results Result Co [facility] Bqcieuwjqece8288-20-24 09:43:03* Test Item Value Reference Range Interpretation Comme nts WBC (test code = 6690-2) 11.23 4.30-11.10 H RBC (test code = 789-8) 3.22 3.93-5.25 L HGB (test code = 718-7) 8.6 g/dL 11.6-15.0 L HCT (test code = 4544-3) 26.6 % 35.7-45.2 L MCV (test code = 787-2) 82.6 fL 80.6-95.5 MCH (test code = 785-6) 26.7 pg 25.9-32.8 MCHC (test code = 786-4) 32.3 g/dL 31.6-35.1 RDW-SD (test code = 29650-0) 46.6 fL 39.0-49.9 RDW-CV (test code = 788-0) 15.9 % 12.0-15.5 H PLT (test code = 777-3) 182 166-358 MPV (test code = 44620-7) 11.7 fL 9.5-12.9 NRBC/100 WBC (test code = 4706542474) 0.0 0.0-10.0 NRBC x10^3 (test code = 6726866584) See_Comment [Automated messa ge] The system which generated this result transmitted reference range: 10*3/?L. The reference range was not used to interpret this result as normal/abnormal. GRAN MAT (NEUT) % (test code = 770-8) 73.5 % IMM GRAN % (test code = 3836311401) 0.50 % LYMPH % (test code = 736-9) 16.1 % MONO % (test code = 5905-5) 8.0 % EOS % (test code = 713-8) 1.5 % BASO % (test code = 706-2) 0.4 % GRAN MAT x10^3(ANC) (test code = 2065366287) 8.25 10*3/uL 1.88-7.09 H IMM GRAN x10^3 (test code = 3509014135) 0.06 10*3/uL 0.00-0.06 LYMPH x10^3 (test code = 731-0) 1.81 10*3/uL 1.32-3.29 MONO x10^3 (test code = 742-7) 0.90 10*3/uL 0.33-0.92 EOS x10^3 (test code = 711-2) 0.17 10*3/uL 0.03-0.39 BASO x10^3 (test code = 704-7) 0.04 10*3/uL 0.01-0.07 Lab Interpretation (test code = 20162-7) Abnormal [facility] (D) IMMUNE [id number] 15:21:36* Test Item Value Reference Range Interpretation Comme nts RHIG CANDIDATE? (test code = 5188) No- see comment Patient is not a candidate for RhIg- Patient is Rh Positive.Performed at [facility] Laboratory [facility] Blood [address] Free: [phone] No. [id number] [facility]) IMMUNE [id number] 15:21:36* Test Item Value Reference Range Interpretation Comme nts RHIG CANDIDATE? (test code = 5188) No- see comment Patient is not a candidate for RhIg- Patient is Rh Positive.Performed at [facility] Laboratory Services [facility] Blood [address] Free: [phone] No. [id number] [facility] Cord Cjp3146-64-31 14:26:23* Test Item Value Reference Range Interpretation Comme nts VENOUS BASE EXCESS, CORD (te st code = 7710653462) -1.8 mEq/L VENOUS PH, CORD (test code = 7872377241) 7.40 7.25-7.45 VENOUS PC02, CORD (test code = 7693840483) 37 27-49 VENOUS PO2, CORD (test code = 7459702464) 36 17-41 VENOUS BICARBONATE, CORD (te st code = 1666043520) 22 12-29 [facility] Cord Wsu1199-71-11 14:26:23* Test Item Value Reference Range Interpretation Comme nts VENOUS BASE EXCESS, CORD (te st code = 7755867043) -1.8 mEq/L VENOUS PH, CORD (test code = 7412440408) 7.40 7.25-7.45 VENOUS PC02, CORD (test code = 1748804607) 37 27-49 VENOUS PO2, CORD (test code = 4196870049) 36 17-41 VENOUS BICARBONATE, CORD (te st code = 4147145614) 22 12-29 [facility] Zoisu4290-45-64 01:50:04* Test Item Value Reference Range Interpretation Comme nts URIC ACID (test code = 6902045096) 5.2 mg/dL 2.9-6.0 Lab Interpretation (test cod e = 68083-6) [facility]2024-[facility]-25 01:50:04* Test Item Value Reference Range Interpretation Comme nts AST(SGOT) (test code = 1563339478) 27 U/L 13-40 Lab Interpretation (test cod e = 70229-2) Normal [facility] Tdexp3458-43-42 01:50:04* Test Item Value Reference Range Interpretation Comme nts URIC ACID (test code = 2550704457) 5.2 mg/dL 2.9-6.0 Lab Interpretation (test cod e = 24229-4) [facility] (Asparate Amino [facility])2024-01-25 01:50:04* Test Item Value Reference Range Interpretation Comme nts AST(SGOT) (test code = 3487439458) 27 U/L 13-40 Lab Interpretation (test cod e = 09126-8) Normal [facility] Zxtpxwekpx8809-43-91 01:50:03* Test Item Value Reference Range Interpretation Comme [facility] CREATININE (test code = 2160-0) 0.60 mg/dL 0.50-1.04 eGFR (test code = 06379-0) 124.8 mL/min/1.73m2 CKD-EPI eGFR (20 21). Assuming creatinine has been stable day-to-day for at least three months, the eGFR indicates Category G1 (>= 90 mL/min/1.73 m2) [facility] (SGPT)2024-01-25 01:50:03* Test Item Value Reference Range Interpretation Comme nts ALTv (test code = 1742-6) 15 U/L 5-35 Lab Interpretation (test cod e = 55728-0) [facility] Zzkdtrzujx4066-97-34 01:50:03* Test Item Value Reference Range Interpretation Comme nts CREATININE (test code = 2160-0) 0.60 mg/dL 0.50-1.04 eGFR (test code = 45300-9) 124.8 mL/min/1.73m2 CKD-EPI eGFR (20 21). Assuming creatinine has been stable day-to-day for at least three months, the eGFR indicates Category G1 (>= 90 mL/min/1.73 m2) [facility])2024-01-25 01:50:03* Test Item Value Reference Range Interpretation Comme nts ALTv (test code = 1742-6) 15 U/L 5-35 Lab Interpretation (test cod e = 40689-2) Normal [facility] Aciufgyvxolqu8200-71-42 01:42:03* Test Item Value Reference Range Interpretation Comme nts LDH (test code = 6754771279) 152 U/L 120-246 Lab Interpretation (test cod e = 54842-4) Normal [facility] Alqjhvoteuvcw2918-53-48 01:42:03* Test Item Value Reference Range Interpretation Comme nts LDH (test code = 2397573662) 152 U/L 120-246 Lab Interpretation (test cod e = 02734-1) [facility] with Mwszpplyxdst4572-25-63 01:34:41* Test Item Value Reference Range Interpretation Comme nts WBC (test code = 6690-2) 16.11 4.30-11.10 H RBC (test code = 789-8) 3.86 3.93-5.25 L HGB (test code = 718-7) 10.3 g/dL 11.6-15.0 L HCT (test code = 4544-3) 32.0 % 35.7-45.2 L MCV (test code = 787-2) 82.9 fL 80.6-95.5 MCH (test code = 785-6) 26.7 pg 25.9-32.8 MCHC (test code = 786-4) 32.2 g/dL 31.6-35.1 RDW-SD (test code = 57241-9) 46.6 fL 39.0-49.9 RDW-CV (test code = 788-0) 15.9 % 12.0-15.5 H PLT (test code = 777-3) 198 166-358 MPV (test code = 81374-8) 11.9 fL 9.5-12.9 NRBC/100 WBC (test code = 7357018326) 0.0 0.0-10.0 NRBC x10^3 (test code = 8607117474) See_Comment [Automated message] The system which generated this result transmitted reference range: 10*3/?L. The reference range was not used to interpret this result as normal/abnormal. GRAN MAT (NEUT) % (test code = 770-8) 84.5 % IMM GRAN % (test code = 8798921792) 0.60 % LYMPH % (test code = 736-9) 8.8 % MONO % (test code = 5905-5) 5.1 % EOS % (test code = 713-8) 0.6 % BASO % (test code = 706-2) 0.4 % GRAN MAT x10^3(ANC) (test code = 5094929152) 13.63 10*3/uL 1.88-7.09 H IMM GRAN x10^3 (test code = 9658136338) 0.09 10*3/uL 0.00-0.06 H LYMPH x10^3 (test code = 731-0) 1.42 10*3/uL 1.32-3.29 MONO x10^3 (test code = 742-7) 0.82 10*3/uL 0.33-0.92 EOS x10^3 (test code = 711-2) 0.09 10*3/uL 0.03-0.39 BASO x10^3 (test code = 704-7) 0.06 10*3/uL 0.01-0.07 Lab Interpretation (test code = 98759-0) Abnormal [facility] with Iegxhbnfuqhy2608-41-88 01:34:41* Test Item Value Reference Range Interpretation Comme nts WBC (test code = 6690-2) 16.11 4.30-11.10 H RBC (test code = 789-8) 3.86 3.93-5.25 L HGB (test code = 718-7) 10.3 g/dL 11.6-15.0 L HCT (test code = 4544-3) 32.0 % 35.7-45.2 L MCV (test code = 787-2) 82.9 fL 80.6-95.5 MCH (test code = 785-6) 26.7 pg 25.9-32.8 MCHC (test code = 786-4) 32.2 g/dL 31.6-35.1 RDW-SD (test code = 86819-9) 46.6 fL 39.0-49.9 RDW-CV (test code = 788-0) 15.9 % 12.0-15.5 H PLT (test code = 777-3) 198 166-358 MPV (test code = 00515-5) 11.9 fL 9.5-12.9 NRBC/100 WBC (test code = 9057443933) 0.0 0.0-10.0 NRBC x10^3 (test code = 1925940416) See_Comment [Automated message] The system which generated this result transmitted reference range: 10*3/?L. The reference range was not used to interpret this result as normal/abnormal. GRAN MAT (NEUT) % (test code = 770-8) 84.5 % IMM GRAN % (test code = 8131385002) 0.60 % LYMPH % (test code = 736-9) 8.8 % MONO % (test code = 5905-5) 5.1 % EOS % (test code = 713-8) 0.6 % BASO % (test code = 706-2) 0.4 % GRAN MAT x10^3(ANC) (test code = 3529864902) 13.63 10*3/uL 1.88-7.09 H IMM GRAN x10^3 (test code = 1254302845) 0.09 10*3/uL 0.00-0.06 H LYMPH x10^3 (test code = 731-0) 1.42 10*3/uL 1.32-3.29 MONO x10^3 (test code = 742-7) 0.82 10*3/uL 0.33-0.92 EOS x10^3 (test code = 711-2) 0.09 10*3/uL 0.03-0.39 BASO x10^3 (test code = 704-7) 0.06 10*3/uL 0.01-0.07 Lab Interpretation (test code = 07856-7) Abnormal [facility] ONLY - SYPHILIS IGG/APO9044-05-70 15:07:43* Test Item Value Reference Range Interpretation Comme nts Syphilis IgG/IgM (test code = 29064-0) Non-reactive Non-reactive GIN (test code = GIN) Non-reactive - No serologic evidence of T. pallidum infection. Cannot exclude incubating or early syphilis. Submit a second specimen in 2-4 weeks if syphilis is clinically suspected. Equivocal - Further testing to follow. Reactive - Further testing to follow. Lab Interpretation (test code = 87287-6) Normal [facility] ONLY - SYPHILIS IGG/SYS2118-49-32 15:07:43* Test Item Value Reference Range Interpretation Comme [facility] Syphilis IgG/IgM (test code = 09903-7) Non-reactive Non-reactive GIN (test code = GIN) Non-reactive - No serologic evidence of T. pallidum infection. Cannot exclude incubating or early syphilis. Submit a second specimen in 2-4 weeks if syphilis is clinically suspected. Equivocal - Further testing to follow. Reactive - Further testing to follow. Lab Interpretation (test code = 76002-3) Normal [facility] 1/2 AG-AB WITH HGYUWU8086-26-67 01:50:49* Test Item Value Reference Range Interpretation Comme [facility] HIV Semi-quantitative (test code = 27587-7) 0.08 Negative GIN (test code = GIN) Non-reactive for HIV-1 antigen and HIV-1/HIV-2 antibodies. ?No laboratory evidence of HIV infection. ?Repeat in 2-4 weeks if acute HIV infection is suspected. [facility] 1/2 AG-AB WITH PYRCSC3179-95-40 01:50:49* Test Item Value Reference Range Interpretation Comme [facility] HIV Semi-quantitative (test code = 03451-8) 0.08 Negative GIN (test code = GIN) Non-reactive for HIV-1 antigen and HIV-1/HIV-2 antibodies. ?No laboratory evidence of HIV infection. ?Repeat in 2-4 weeks if acute HIV infection is suspected. [facility] B Surface Axprunr4245-07-48 01:42:06 * Test Item Value Reference Range Interpretation Comme nts HBsAg Semi-Quantitative (lorie t code = 5195-3) 0.08 Negative [facility] B Surface Apbertx7811-02-97 01:42:06 * Test Item Value Reference Range Interpretation Comme nts HBsAg Semi-Quantitative (lorie t code = 5195-3) 0.08 Negative [facility] Erjqm6412-76-69 01:40:00 Kimberlyn Pena MD ? ? 01/23/2024 ?8:41 PM Central Neuraxial Block Date/Time: 01/23/2024 8:40 PM Performed by: Candida Wood MDAuthorized by: Kristi Marsh MD ?Patient Location: OBEnd Time: 01/23/2024 8:40 PMReason for Block: Labor analgesiaStaff: ?Anesthesiologist: Kristi Marsh MD ?Res ident/RETAIL GIFT CARD MERCHANDISING: Candida Wood MD ?Performed by: resident/CRNAPreanesthetic Checklist: anesthesia consent, IV checked, patient identified, pre-op evaluation, risks and benefits explained and timeoutperformedProcedure: ?Type of Neuraxial: Epidural ?Epidural Description: 1st attempt ? Sterility Prep cap, drape, gloves, hand hygiene and mask ? ?Sedation Level no sedation ?Patient Position: sitting?Prep: Betadine ? ?Monitoring: heart rate, NIBP and continuous pulse ox ?Location: lumbar (1-5) ?Lumbar: L3-L4 ?Approach: midline ? ?Technique: catheter ?Guidance with: landmark technique}Epidural/Spinal [place] and/or Catheter: ?Epidural/Spinal Kit: ROBraun ?Needle Type: Tuohy ?Needle Gauge: 17 G ?Needle Length: 3.5 in (8.89 cm) ?Needle Insertion Depth: 8.5 ?Catheter Type: multiport ? ?Catheter Size: 18 G ? ?Catheter at Skin Depth: 13.5 ?Number of Attempts: 1 ?Test Dose: lidocaine 1.5% with epinephrine 1-to-200,000 ? ?Dose: 3 ccAssessment: ?Block Outcome: a full evaluation is pending ?[facility] with Wjvkksfvtsqa4542-06-74 22:49:43* Test Item Value Reference Range Interpretation Comme nts WBC (test code = 6690-2) 12.42 4.30-11.10 H RBC (test code = 789-8) 3.96 3.93-5.25 HGB (test code = 718-7) 10.6 g/dL 11.6-15.0 L HCT (test code = 4544-3) 32.6 % 35.7-45.2 L MCV (test code = 787-2) 82.3 fL 80.6-95.5 MCH (test code = 785-6) 26.8 pg 25.9-32.8 MCHC (test code = 786-4) 32.5 g/dL 31.6-35.1 RDW-SD (test code = 88381-6) 45.3 fL 39.0-49.9 RDW-CV (test code = 788-0) 15.5 % 12.0-15.5 PLT (test code = 777-3) 194 166-358 MPV (test code = 60738-9) 12.0 fL 9.5-12.9 NRBC/100 WBC (test code = 8764131963) 0.0 0.0-10.0 NRBC x10^3 (test code = 3700926486) See_Comment [Automated messa ge] The system which generated this result transmitted reference range: 10*3/?L. The reference range was not used to interpret this result as normal/abnormal. GRAN MAT (NEUT) % (test code = 770-8) 77.3 % IMM GRAN % (test code = 0034167311) 0.50 % LYMPH % (test code = 736-9) 13.7 % MONO % (test code = 5905-5) 6.0 % EOS % (test code = 713-8) 2.1 % BASO % (test code = 706-2) 0.4 % GRAN MAT x10^3(ANC) (test code = 1334010309) 9.60 10*3/uL 1.88-7.09 H IMM GRAN x10^3 (test code = 5679123838) 0.06 10*3/uL 0.00-0.06 LYMPH x10^3 (test code = 731-0) 1.70 10*3/uL 1.32-3.29 MONO x10^3 (test code = 742-7) 0.75 10*3/uL 0.33-0.92 EOS x10^3 (test code = 711-2) 0.26 10*3/uL 0.03-0.39 BASO x10^3 (test code = 704-7) 0.05 10*3/uL 0.01-0.07 Lab Interpretation (test code = 01036-4) Abnormal [facility] with Kwauyvejabmr8366-04-90 22:49:43* Test Item Value Reference Range Interpretation Comme nts WBC (test code = 6690-2) 12.42 4.30-11.10 H RBC (test code = 789-8) 3.96 3.93-5.25 HGB (test code = 718-7) 10.6 g/dL 11.6-15.0 L HCT (test code = 4544-3) 32.6 % 35.7-45.2 L MCV (test code = 787-2) 82.3 fL 80.6-95.5 MCH (test code = 785-6) 26.8 pg 25.9-32.8 MCHC (test code = 786-4) 32.5 g/dL 31.6-35.1 RDW-SD (test code = 72201-6) 45.3 fL 39.0-49.9 RDW-CV (test code = 788-0) 15.5 % 12.0-15.5 PLT (test code = 777-3) 194 166-358 MPV (test code = 77526-2) 12.0 fL 9.5-12.9 NRBC/100 WBC (test code = 8902723954) 0.0 0.0-10.0 NRBC x10^3 (test code = 0141566053) See_Comment [Automated messa ge] The system which generated this result transmitted reference range: 10*3/?L. The reference range was not used to interpret this result as normal/abnormal. GRAN MAT (NEUT) % (test code = 770-8) 77.3 % IMM GRAN % (test code = 9364799371) 0.50 % LYMPH % (test code = 736-9) 13.7 % MONO % (test code = 5905-5) 6.0 % EOS % (test code = 713-8) 2.1 % BASO % (test code = 706-2) 0.4 % GRAN MAT x10^3(ANC) (test code = 2778158426) 9.60 10*3/uL 1.88-7.09 H IMM GRAN x10^3 (test code = 8170531959) 0.06 10*3/uL 0.00-0.06 LYMPH x10^3 (test code = 731-0) 1.70 10*3/uL 1.32-3.29 MONO x10^3 (test code = 742-7) 0.75 10*3/uL 0.33-0.92 EOS x10^3 (test code = 711-2) 0.26 10*3/uL 0.03-0.39 BASO x10^3 (test code = 704-7) 0.05 10*3/uL 0.01-0.07 Lab Interpretation (test code = 71805-2) [facility] [id number] 22:42:00 * Test Item Value Reference Range Interpretation Comme nts ABO & RH (test code = 20) B POSITIVE IAT (test code = 1185) Negative [facility] AZZS4129-71-05 22:42:00 * Test Item Value Reference Range Interpretation Comme nts ABO & RH (test code = 20) B POSITIVE IAT (test code = 1185) Negative [facility] W SPECIFIC [id number] 20:43:00* Test Item Value Reference Range Interpretation Comme nts POCT U SP GRAV (test code = 3255) . 1.005-1.025 POCT PH U (test code = 3254) 6 mg/dl 5-8 POCT U LEUK EST (test code = 3263) 1+ Negative - Negative POCT U NIT (test code = 3262) neg Negative - Negati ve POCT U PROT (test code = 3259) trace Negative - Negat bala POCT U GLU (test code = 3256) normal Negative - Negati ve POCT U KETONE (test code = 3258) neg Negative - Neg ative POCT U UROBILI (test code = 3260) . 0.2-1 A POCT U BILI (test code = 3261) . Negative - Negat bala POCT U BLD (test code = 3257) neg Negative - Negati ve POCT U COLOR (test code = 3266) POCT U APPEAR (test code = 3267) Lab Interpretation (test cod e = 47062-1) Abnormal [facility] Urinalysis Glucose & Diskuab2406-46-44 19:54:00* Test Item Value Reference Range Interpretation Comme nts POCT U PROT (test code = 3259) trace Negative - Negat bala POCT U GLU (test code = 3256) neg Negative - Negati ve [facility] URINALYSIS W SPECIFIC [id number] 19:58:00* Test Item Value Reference Range Interpretation Comme nts POCT U SP GRAV (test code = 3255) . 1.005-1.025 POCT PH U (test code = 3254) . 5-8 POCT U LEUK EST (test code = 3263) . Negative - N egative POCT U NIT (test code = 3262) . Negative - Negati ve POCT U PROT (test code = 3259) trace Negative - Negat bala POCT U GLU (test code = 3256) neg Negative - Negati ve POCT U KETONE (test code = 3258) . Negative - Neg ative POCT U UROBILI (test code = 3260) . 0.2-1 POCT U BILI (test code = 3261) . Negative - Negat bala POCT U BLD (test code = 3257) . Negative - Negati ve POCT U COLOR (test code = 3266) . POCT U APPEAR (test code = 3267) . [facility] URINALYSIS W SPECIFIC [id number] 19:43:00* Test Item Value Reference Range Interpretation Comme nts POCT U SP GRAV (test code = 3255) . 1.005-1.025 POCT PH U (test code = 3254) . 5-8 POCT U LEUK EST (test code = 3263) . Negative - N egative POCT U NIT (test code = 3262) . Negative - Negati ve POCT U PROT (test code = 3259) trace Negative - Negat bala POCT U GLU (test code = 3256) neg Negative - Negati ve POCT U KETONE (test code = 3258) . Negative - Neg ative POCT U UROBILI (test code = 3260) . 0.2-1 POCT U BILI (test code = 3261) . Negative - Negat bala POCT U BLD (test code = 3257) . Negative - Negati ve POCT U COLOR (test code = 3266) POCT U APPEAR (test code = 3267) [facility] URINALYSIS W SPECIFIC [id number] 19:43:00* Test Item Value Reference Range Interpretation Comme nts POCT U SP GRAV (test code = 3255) . 1.005-1.025 POCT PH U (test code = 3254) . 5-8 POCT U LEUK EST (test code = 3263) . Negative - N egative POCT U NIT (test code = 3262) . Negative - Negati ve POCT U PROT (test code = 3259) trace Negative - Negat bala POCT U GLU (test code = 3256) neg Negative - Negati ve POCT U KETONE (test code = 3258) . Negative - Neg ative POCT U UROBILI (test code = 3260) . 0.2-1 POCT U BILI (test code = 3261) . Negative - Negat bala POCT U BLD (test code = 3257) . Negative - Negati ve POCT U COLOR (test code = 3266) POCT U APPEAR (test code = 3267) [facility] URINALYSIS W SPECIFIC [id number] 19:43:00* Test Item Value Reference Range Interpretation Comme nts POCT U SP GRAV (test code = 3255) . 1.005-1.025 POCT PH U (test code = 3254) . 5-8 POCT U LEUK EST (test code = 3263) . Negative - N egative POCT U NIT (test code = 3262) . Negative - Negati ve POCT U PROT (test code = 3259) trace Negative - Negat baal POCT U GLU (test code = 3256) neg Negative - Negati ve POCT U KETONE (test code = 3258) . Negative - Neg ative POCT U UROBILI (test code = 3260) . 0.2-1 POCT U BILI (test code = 3261) . Negative - Negat bala POCT U BLD (test code = 3257) . Negative - Negati ve POCT U COLOR (test code = 3266) POCT U APPEAR (test code = 3267) [facility] URINALYSIS W SPECIFIC [id number] 16:57:00* Test Item Value Reference Range Interpretation Comme nts POCT U SP GRAV (test code = 3255) . 1.005-1.025 POCT PH U (test code = 3254) 6 mg/dl 5-8 POCT U LEUK EST (test code = 3263) 1+ Negative - Negative POCT U NIT (test code = 3262) neg Negative - Negati ve POCT U PROT (test code = 3259) trace Negative - Negat bala POCT U GLU (test code = 3256) neg Negative - Negati ve POCT U KETONE (test code = 3258) neg Negative - Neg ative POCT U UROBILI (test code = 3260) . 0.2-1 POCT U BILI (test code = 3261) . Negative - Negat bala POCT U BLD (test code = 3257) neg Negative - Negati ve POCT U COLOR (test code = 3266) POCT U APPEAR (test code = 3267) [facility] URINALYSIS W SPECIFIC [id number] 22:07:00* Test Item Value Reference Range Interpretation Comme nts POCT U SP GRAV (test code = 3255) . 1.005-1.025 POCT PH U (test code = 3254) 5 mg/dl 5-8 POCT U LEUK EST (test code = 3263) neg Negative - Negative POCT U NIT (test code = 3262) neg Negative - Negati ve POCT U PROT (test code = 3259) trace Negative - Negat bala POCT U GLU (test code = 3256) neg Negative - Negati ve POCT U KETONE (test code = 3258) neg Negative - Neg ative POCT U UROBILI (test code = 3260) . 0.2-1 POCT U BILI (test code = 3261) . Negative - Negat bala POCT U BLD (test code = 3257) neg Negative - Negati ve POCT U COLOR (test code = 3266) POCT U APPEAR (test code = 3267) [facility] URINALYSIS W SPECIFIC [id number] 16:27:00* Test Item Value Reference Range Interpretation Comme nts POCT U SP GRAV (test code = 3255) . 1.005-1.025 POCT PH U (test code = 3254) 7 mg/dl 5-8 POCT U LEUK EST (test code = 3263) 1+ Negative - Negative POCT U NIT (test code = 3262) Neg Negative - Negati ve POCT U PROT (test code = 3259) Trace Negative - Negat bala POCT U GLU (test code = 3256) Nml Negative - Negati ve POCT U KETONE (test code = 3258) None Negative - Neg ative POCT U UROBILI (test code = 3260) . 0.2-1 POCT U BILI (test code = 3261) . Negative - Negat bala POCT U BLD (test code = 3257) Trace Negative - Negati ve POCT U COLOR (test code = 3266) . POCT U APPEAR (test code = 3267) . [facility] Urinalysis w/o Specific [id number] 21:41:00* Test Item Value Reference Range Interpretation Comme nts POCT PH U (test code = 3254) 5 mg/dl 5-8 POCT U LEUK EST (test code = 3263) negative Negative - Negative POCT U NIT (test code = 3262) negative Negative - Negati ve POCT U PROT (test code = 3259) negative Negative - Negat bala POCT U GLU (test code = 3256) negative Negative - Negati ve POCT U KETONE (test code = 3258) negative Negative - Neg ative POCT U BLD (test code = 3257) negative Negative - Negati ve Lab Interpretation (test cod e = 71666-4) [facility] [id number] 21:41:00* Test Item Value Reference Range Interpretation Comme nts POCT PH U (test code = 3254) 5 mg/dl 5-8 POCT U LEUK EST (test code = 3263) negative Negative - Negative POCT U NIT (test code = 3262) negative Negative - Negati ve POCT U PROT (test code = 3259) negative Negative - Negat bala POCT U GLU (test code = 3256) negative Negative - Negati ve POCT U KETONE (test code = 3258) negative Negative - Neg ative POCT U BLD (test code = 3257) negative Negative - Negati ve Lab Interpretation (test cod e = 27272-5) Normal [facility] Urinalysis w/o Specific [id number] 21:41:00* Test Item Value Reference Range Interpretation Comme nts POCT PH U (test code = 3254) 5 mg/dl 5-8 POCT U LEUK EST (test code = 3263) negative Negative - Negative POCT U NIT (test code = 3262) negative Negative - Negati ve POCT U PROT (test code = 3259) negative Negative - Negat bala POCT U GLU (test code = 3256) negative Negative - Negati ve POCT U KETONE (test code = 3258) negative Negative - Neg ative POCT U BLD (test code = 3257) negative Negative - Negati ve Lab Interpretation (test cod e = 23815-9) [facility] [id number] 16:16:28 * Test Item Value Reference Range Interpretation Comme [facility] Rubella screen IgG (test code = 8557190388) Positive Negative GIN (test code = GIN) Positive - Indicat es the patient was exposed to Rubella through infection or vaccination.Negative - Indicates the patient could be susceptible to Rubella infection.Equivocal - A second specimen should be sent. [facility] ONLY - SYPHILIS [id number] 15:18:43* Test Item Value Reference Range Interpretation Comme nts Syphilis IgG/IgM (test code = 42495-7) Non-reactive Non-reactive GIN (test code = GIN) Non-reactive - No serologic evidence of T. pallidum infection. Cannot exclude incubating or early syphilis. Submit a second specimen in 2-4 weeks if syphilis is clinically suspected. Equivocal - Further testing to follow. Reactive - Further testing to follow. Lab Interpretation (test code = 91429-9) [facility]-AB WITH [id number] 11:14:41* Test Item Value Reference Range Interpretation Comme nts HIV Semi-quantitative (test code = 70935-3) 0.09 Negative GIN (test code = GIN) Non-reactive for HIV-1 antigen and HIV-1/HIV-2 antibodies. ?No laboratory evidence of HIV infection. ?Repeat in 2-4 weeks if acute HIV infection is suspected. [facility] SURFACE [id number] 09:34:47 * Test Item Value Reference Range Interpretation Comme nts HBsAg Semi-Quantitative (lorie t code = 5195-3) 0.06 Negative [facility] POST [id number] 07:57:22* Test Item Value Reference Range Interpretation Comme nts GLUC 1 HR (test code = 4027681627) 116 mg/dL 120-170 L Lab Interpretation (test cod e = 74303-7) Abnormal [facility] WITH [id number] 06:14:30* Test Item Value Reference Range Interpretation Comme nts WBC (test code = 6690-2) 8.51 See_Comment [Automated HealthTeacher / GoNoodlea ge] The system which generated this result transmitted reference range: 4.30 - 11.10 10*3/?L. The reference range was not used to interpret this result as normal/abnormal. RBC (test code = 789-8) 4.44 See_Comment [Automated HealthTeacher / GoNoodlea ge] The system which generated this result transmitted reference range: 3.93 - 5.25 10*6/?L. The reference range was not used to interpret this result as normal/abnormal. HGB (test code = 718-7) 13.0 g/dL 11.6-15.0 HCT (test code = 4544-3) 38.6 % 35.7-45.2 MCV (test code = 787-2) 86.9 fL 80.6-95.5 MCH (test code = 785-6) 29.3 pg 25.9-32.8 MCHC (test code = 786-4) 33.7 g/dL 31.6-35.1 RDW-SD (test code = 95435-4) 39.3 fL 39.0-49.9 RDW-CV (test code = 788-0) 12.3 % 12.0-15.5 PLT (test code = 777-3) 211 See_Comment [Automated messa ge] The system which generated this result transmitted reference range: 166 - 358 10*3/?L. The reference range was not used to interpret this result as normal/abnormal. MPV (test code = 60590-4) 11.0 fL 9.5-12.9 NRBC/100 WBC (test code = 9914888161) 0.0 See_Comment [Automated Hoseanna ssage] The system which generated this result transmitted reference range: 0.0 - 10.0 /100 WBCs. The reference range was not used to interpret this result as normal/abnormal. NRBC x10^3 (test code = 2802499836) See_Comment [Automated HealthTeacher / GoNoodlea ge] The system which generated this result transmitted reference range: 10*3/?L. The reference range was not used to interpret this result as normal/abnormal. GRAN MAT (NEUT) % (test code = 770-8) 76.0 % IMM GRAN % (test code = 9768376366) 0.20 % LYMPH % (test code = 736-9) 15.4 % MONO % (test code = 5905-5) 4.5 % EOS % (test code = 713-8) 3.2 % BASO % (test code = 706-2) 0.7 % GRAN MAT x10^3(ANC) (test code = 9725391146) 6.47 10*3/uL 1.88-7.09 IMM GRAN x10^3 (test code = 9362915547) 0.00-0.06 LYMPH x10^3 (test code = 731-0) 1.31 10*3/uL 1.32-3.29 L MONO x10^3 (test code = 742-7) 0.38 10*3/uL 0.33-0.92 EOS x10^3 (test code = 711-2) 0.27 10*3/uL 0.03-0.39 BASO x10^3 (test code = 704-7) 0.06 10*3/uL 0.01-0.07 Lab Interpretation (test code = 87611-3) Abnormal [facility], BLOOD [id number] 20:46:00 * Test Item Value Reference Range Interpretation Comme nts ABO & RH (test code = 20) B POSITIVE IAT (test code = 1185) Negative [facility] URINALYSIS W SPECIFIC [id number] 20:45:00* Test Item Value Reference Range Interpretation Comme nts POCT U SP GRAV (test code = 3255) . 1.005-1.025 POCT PH U (test code = 3254) 6 mg/dl 5-8 POCT U LEUK EST (test code = 3263) 2+ Negative - Negative POCT U NIT (test code = 3262) neg Negative - Negati ve POCT U PROT (test code = 3259) trace Negative - Negat bala POCT U GLU (test code = 3256) neg Negative - Negati ve POCT U KETONE (test code = 3258) 1+ Negative - Neg ative POCT U UROBILI (test code = 3260) . 0.2-1 POCT U BILI (test code = 3261) . Negative - Negat bala POCT U BLD (test code = 3257) neg Negative - Negati ve POCT U COLOR (test code = 3266) . POCT U APPEAR (test code = 3267) . Lab Interpretation (test cod e = 87051-1) Normal [facility] [id number] 20:09:00* Test Item Value Reference Range Interpretation Comme nts POCT PREG (test code = 1605) Positive On board controls acceptable with C Line (test code = 3574) Yes POCT PREG LOT # (test code = 3575) POCT PREG TEST DATE ( test code = 3576) [facility] ABDOMEN PELVIS W [id number] 15:09:48CT Abdomen and Pelvis with intravenous contrast. CLINICAL HISTORY: Acute generalized abdominal pain. DOSE: Up-to-date CT equipment and radiation dose reduction techniques wereemployed. CTDIvol: 10.51mGy. DLP: 543 mGy-cm. TECHNIQUE : Contiguous axial imaging from the level of the lung basesthrough the pubic symphysis were performed after the uncomplicatedadministration of Omnipaque contrast material. Coronal and sagittalreconstructions were obtained. Auto mA and/or iterative reconstruction wereused to reduce radiation dose. FINDINGS: ? Lower lungs: Clear. No pleural effusion or pericardial effusion. Liver, Gallbladder and Spleen: Liver measures approximately 16.6 cm andspleen is 12.7 x 5.5 cm. Subcapsular medial right lobe of the liver bswubp15 mm sized low density lesion (segment #6) of uncertain etiology. 9 mmaccessory splenule noted near the hilum of the spleen. Peritoneum: ?No free air or free fluid. No lymphadenopathy. Pancreas and Adrenals: ?Unremarkable pancreas and adrenal glands. Kidneys and Ureters: ?No visible calculi in the renal collecting systems. No hydroureter or hydronephrosis. No abnormal enhancement detected in thecortex of the kidneys. Vessels: Normal. Retroperitoneum: No abnormal fluid or lymphadenopathy. Bowel: Irregular shaped radiopaque densities in the dependent portion ofthe gastric lumen could be orally ingested food and/or medications. Noacute findings. Normal appendix is visualized. Bladder and Reproductive Organs: Multiple bilateral ovarian cysts includingpartially decompressed 22 mm cyst in the right ovary and 23 mm cyst in theleft ovary. Free fluid noted in the cul-de-sac. Grossly unremarkable underdistended and unopacified urinary bladder. Bones: Unremarkable. Soft tissues: Unremarkable. CONCLUSION:1. Bilateral ovarian cysts including partially decompressed cyst in theright ovary with free fluid in the cul-de-sac, consistent with physiologicchanges.2. No acute intra-abdominal abnormalities.3. 11 mm low-density lesion in the subcapsular medial right lobe of theliver is of uncertain etiology. This lesion may be monitored by eitherult rasound or follow-up CT scan in 3 months. [facility], Radiant Results Inft User - 06/23/2020 9:10 AM CSTCT Abdomen and Pelvis with intravenous contrast.CLINICAL HISTORY: Acute generalized abdominal pain.DOSE: Up-to-date CT equipment and radiation dose reduction techniques wereemployed. CTDIvol: 10.51 mGy. DLP: 543 mGy-cm.TECHNIQUE : Contiguous axial imaging from the level of the lung basesthrough the pubic symphysis were performed after the uncomplicatedadministration of Omnipaque contrast material. Coronal and sagittalreconstructions were obtained. Auto mA and/or iterative reconstruction wereused to reduce radiation dose.FINDINGS: Lower lungs: Clear. No pleural effusion or pericardial effusion.Liver, Gallbladder and Spleen: Liver measures approximately 16.6 cm andspleen is 12.7 x 5.5 cm. Subcapsular medial right lobe of the liver mm sized low density lesion (segment #6) of uncertain etiology. 9 mmaccessory splenule noted near the hilum of the spleen.Peritoneum: No free air or freefluid. No lymphadenopathy.Pancreas and Adrenals: Unremarkable pancreas and adrenal glands.Kidneys and Ureters: No visible calculi in the renal collecting systems. No hydroureter or hydronephrosis. Noabnormal enhancement detected in thecortex of the kidneys. Vessels: Normal.Retroperitoneum: No abnor mal fluid or lymphadenopathy.Bowel: Irregular shaped radiopaque densities in the dependent portion ofthe gastric lumen could be orally ingested food and/or medications. Noacute findings. Normal appendix is visualized.Bladder and Reproductive Organs: Multiple bilateral ovarian cysts includingpartially decompressed 22 mm cyst in the right ovary and 23 mm cyst in theleft ovary. Free fluid noted in the cul-de-sac. Grossly unremarkable underdistended and unopacified urinary bladder.Bones: Unremarkable.Soft tissues: Unremarkable.CONCLUSION:1. Bilateral ovarian cysts including partially decompressedcyst in theright ovary with free fluid in the cul-de-sac, consistent with physiologicchanges.2. No acute intra-abdominal abnormalities.3. 11 mm low- density lesion in the subcapsular medial right lobeof theliver is of uncertain etiology. This lesion may be monitored by eitherultrasound or follow-upCT scan in 3 months.[facility] HospitalLIPID PANEL (87275)(TOTAL CHOLESTEROL, TRIGLYCERIDES, HDL)2020-06-23 14:32:00* Test Item Value Reference Range Interpretation Comme nts CHOL (test code = 9716639009) 95 mg/dL 120-200 L HDL (test code = 2773855901) 40 mg/dL >50 L HDLC RATIO (test code = 3919873343) See_Comment [Automated Konotor] The system which generated this result transmitted reference range: <=4.5. The reference range was not used to interpret this result as normal/abnormal. TRIG (test code = 1054916028) 53 mg/dL 30-170 LDL CHOL (test code = 64583-7) 44 mg/dL See_Comment [Automated [employer]otor] The system which generated this result transmitted reference range: <=160. The reference range was not used to interpret this result as normal/abnormal. VLDL (test code = 3093067722) 11 mg/dL 5-60 Lab Interpretation (test code = 52348-9) Abnormal [facility] Metabolic [id number] 14:24:00* Test Item Value Reference Range Interpretation Comme nts NA (test code = 7755903048) 141 mmol/L 135-145 K (test code = 4249982949) 3.6 mmol/L 3.5-5 CL (test code = 4775868186) 105 mmol/L 98-108 CO2 TOTAL (test code = 1564029493) 29 mmol/L 23-31 AGAP (test code = 4037761438) 2-16 BUN (test code = 0829976955) 13 mg/dL 7-23 GLUCOSE (test code = 8565862505) 109 mg/dL 70-110 CREATININE (test code = 9542169130) 0.81 mg/dL 0.5-1.04 TOTAL BILI (test code = 7656560817) 0.4 mg/dL 0.1-1.1 CALCIUM (test code = 1304656090) 9.0 mg/dL 8.6-10.6 T PROTEIN (test code = 9514875892) 7.2 g/dL 6.3-8.2 ALBUMIN (test code = 7087372203) 4.2 g/dL 3.5-5 ALK PHOS (test code = 5718795554) 98 U/L 34-122 ALTv (test code = 1742-6) 20 U/L 5-35 AST(SGOT) (test code = 9124897057) 23 U/L 13-40 eGFR Calculation (Non-) (test code = 7777261115) mL/min/1.73m2 eGFR Calculation () (test code = 2294192259) mL/min/1.73m2 GIN (test code = GIN) Association of Glomerular Filtration Rate (GFR) and Staging of Kidney Disease* + -+ + ---+| GFR (mL/min/1.73 m2) ?| With Kidney Damage ?| ?Without Kidney Damage+ -------+ ------+ ---------+| ?>90 ?| ?Stage one ?| ? Normal ?+ --+ -+ ----+| ?60-89 ?| ?Stage two ?| ? Decreased GFR ? + -+ + ---+| ?30-59 ?| ?Stage three ?| ? Stage three ? + -+ + ---+| ?15-29 ?| ?Stage four ? | ? Stage four ?+ --+ -+ ----+| ?<15 (or dialysis) ? ?| ?Stage five ? | ? Stage five ?+ --+ -+ ----+ *Each stage assumes the associated GFR level has been in effect for at least three months. ?Stages 1 to 5, with or without kidney disease, indicate chronic kidney disease. Notes: Determination of stages one and two (with eGFR >59mL/min/1.73 m2) requires estimation of kidney damage for at least three months as defined by structural or functional abnormalities of the kidney, manifested by either:Pathological abnormalities or Markers of kidney damage (including abnormalities in the composition of the blood or urine or abnormalities in imaging tests). [facility] HospitalLipase, [id number] 14:23:00* Test Item Value Reference Range Interpretation Comme nts LIPASE (test code = 9183540659) 122 U/L 0-220 Lab Interpretation (test cod e = 51764-2) Normal [facility]ysis2020-[facility]-10 14:12:00* Test Item Value Reference Range Interpretation Comme nts APPEARANCE (test code = 5819006453) Cloudy Clear A COLOR (test code = 5193057747) Yellow Yellow PH (test code = 0111910511) 4.8-8.0 SP GRAVITY (test code = 8539271407) 1.003-1.030 GLU U QUAL (test code = 2303102322) Normal Normal BLOOD (test code = 3231816112) Negative Negative KETONES (test code = 7365517376) Negative Negative PROTEIN (test code = 2887-8) 30 mg/dL Negative A UROBILIN (test code = 2212255216) 2.0 mg/dL Normal A BILIRUBIN (test code = 4056643692) Negative Negative NITRITE (test code = 1693239379) Negative Negative LEUK AURELIO (test code = 5594748061) Negative Negative RBC/HPF (test code = 4818025565) See_Comment [Automated messa ge] The system which generated this result transmitted reference range: 0 - 3 HPF. The reference range was not used to interpret this result as normal/abnormal. WBC/HPF (test code = 9013257995) See_Comment [Automated messa ge] The system which generated this result transmitted reference range: 0 - 5 HPF. The reference range was not used to interpret this result as normal/abnormal. BACTERIA (test code = 3751521824) Many Negative A MUCOUS (test code = 6661809486) Moderate Negative LPF A AMORPHOUS (test code = 1004362102) Rare Rare HPF SQ EPITH (test code = 4896951302) HPF Lab Interpretation (test code = 38068-0) Abnormal [facility] with Slcuuatoucob4670-03-30 14:05:00* Test Item Value Reference Range Interpretation Comme nts WBC (test code = 6690-2) See_Comment [Automated messa ge] The system which generated this result transmitted reference range: 4.30 - 11.10 10*3/?L. The reference range was not used to interpret this result as normal/abnormal. RBC (test code = 789-8) See_Comment [Automated messa ge] The system which generated this result transmitted reference range: 3.93 - 5.25 10*6/?L. The reference range was not used to interpret this result as normal/abnormal. HGB (test code = 718-7) 13.4 g/dL 11.6-15 HCT (test code = 4544-3) 40.3 % 35.7-45.2 MCV (test code = 787-2) 85.4 fL 80.6-95.5 MCH (test code = 785-6) 28.4 pg 25.9-32.8 MCHC (test code = 786-4) 33.3 g/dL 31.6-35.1 RDW-SD (test code = 26546-0) 36.9 fL 39-49.9 L RDW-CV (test code = 788-0) 11.9 % 12-15.5 L PLT (test code = 777-3) See_Comment [Automated HealthTeacher / GoNoodlea ge] The system which generated this result transmitted reference range: 166 - 358 10*3/?L. The reference range was not used to interpret this result as normal/abnormal. MPV (test code = 48406-2) 11.0 fL 9.5-12.9 NRBC/100 WBC (test code = 6507288898) See_Comment [Automated Hoseanna ssage] The system which generated this result transmitted reference range: 0.0 - 10.0 /100 WBCs. The reference range was not used to interpret this result as normal/abnormal. NRBC x10^3 (test code = 5551663578) <0.01 See_Comment [Automated HealthTeacher / GoNoodlea ge] The system which generated this result transmitted reference range: 10*3/?L. The reference range was not used to interpret this result as normal/abnormal. GRAN MAT (NEUT) % (test code = 770-8) 62.7 % IMM GRAN % (test code = 8680067256) 0.30 % LYMPH % (test code = 736-9) 24.7 % MONO % (test code = 5905-5) 6.6 % EOS % (test code = 713-8) 5.0 % BASO % (test code = 706-2) 0.7 % GRAN MAT x10^3(ANC) (test code = 8654479340) 5.46 10*3/uL 1.88-7.09 IMM GRAN x10^3 (test code = 4429261890) 0.03 10*3/uL 0-0.06 LYMPH x10^3 (test code = 731-0) 2.16 10*3/uL 1.32-3.29 MONO x10^3 (test code = 742-7) 0.58 10*3/uL 0.33-0.92 EOS x10^3 (test code = 711-2) 0.44 10*3/uL 0.03-0.39 H BASO x10^3 (test code = 704-7) 0.06 10*3/uL 0.01-0.07 Lab Interpretation (test code = 29701-7) Abnormal [facility] [id number] 13:58:00* Test Item Value Reference Range Interpretation Comme nts POCT PREG (test code = 1605) negative On board controls acceptable with C Line (test code = 3574) present Lab Interpretation (test cod e = 47420-3) Normal [facility] [id number] 13:55:00* Test Item Value Reference Range Interpretation Comme nts POCT PREG (test code = 1605) negative On board controls acceptable with C Line (test code = 3574) present POCT PREG LOT # (test code = 3575) [id number] POCT PREG TEST DATE ( test code = 3576) 2021-04-13 Lab Interpretation (test cod e = 97390-2) [facility] History and Physical Notes Date/Time Note Provider Source 2024-01-23 16:52:15 TRIAGE/L&D HISTORY & PHYSICAL IDENTIFYING DATA Jordan Dallas is 29 year old, /White, 39w0d, female with FLORENTINO 01/30/2024, by Last Menstrual Period. : 1995 Primary Care Physician: PATIENT DOES NOT HAVE A PCP CHIEF COMPLAINT Scheduled induction of labor HISTORY OF PRESENT ILLNESS Jordan Dallas is a 29 year old at 39w0d who presents for IOL Patient denies vaginal bleeding, denies leakage of fluid, denies contractions. Patient denies headache, denies nausea/vomiting, denies RUQ pain, denies visual abnormalities. Endorses normal movement. PAST OBSTETRIC HISTORY OB History Para Term AB Living 2 1 SAB IAB Ectopic Multiple Live Births 1 # Outcome Date GA Lbr Luis F/2nd Weight Sex Delivery Anes PTL Lv 2 Current 1 2016 PAST MEDICAL HISTORY Problem list: Patient Active Problem List Diagnosis Date Noted 39 weeks gestation of 01/23/2024 Positive GBS test 01/09/2024 Anemia of mother in , antepartum 01/04/2024 Abnormal maternal glucose tolerance, antepartum 10/26/2023 Gonorrhea affecting 10/23/2023 Trichomonal vaginitis in 07/19/2023 GBS (group B streptococcus) UTI complicating 07/12/2023 Supervision of high-risk 07/10/2023 History of miscarriage 07/10/2023 History of drug use 07/10/2023 Pain pelvic 05/23/2017 Cyst of right ovary 05/23/2017 Obesity in 09/23/2016 Operations: Past Surgical History: Procedure Laterality Date APICOECTOMY 2008 Past Medical History: Diagnosis Date Anxiety 2008 not on meds Depression 2008 not on meds Substance abuse 2022 quit when found out Trichomonal vaginitis in 07/19/2023 CURRENT HEALTH STATUS Medications: No current facility-administered medications for this encounter. Allergies and drug reactions: Patient has no known allergies. HOME MEDICATIONS Medications Prior to Admission Medication Sig Dispense Refill Last Dose ascorbic acid, vitamin C, 500 mg tablet Take 1 tablet by mouth in the morning and 1 tablet at noon and 1 tablet in the evening. 90 tablet 2 ferrous sulfate 325 mg (65 mg iron) tablet Take 1 tablet by mouth in the morning and 1 tablet in the evening. 60 tablet 3 vitamin w/FA tablet Take 1 tablet by mouth in the morning. 90 tablet 2 SOCIAL HISTORY Tobacco History: Social History Tobacco Use Smoking Status Former Current packs/day: 0.00 Average packs/day: 0.5 packs/day for 4.9 years (2.4 ttl pk-yrs) Types: Cigarettes Start date: 09/23/2013 Quit date: 2019 Years since quittin.4 Smokeless Tobacco Never Drug History: Social History Substance and Sexual Activity Drug Use Not Currently Types: Marijuana, Methamphetamines Comment: last used 2 months ago Alcohol History: Social History Substance and Sexual Activity Alcohol Use Not Currently FAMILY HISTORY Family History Problem Relation Age of Onset Hypertension Maternal Grandmother REVIEW OF SYSTEMS General: negative Skin: negative HEENT: negative Neck: negative HEME: negative Resp: negative Cardio: negative GI: negative : negative Endo: negative Neuro: negative Back: negative ARLIN: negative Psych: negative VITAL SIGNS BP: (135)/(80) Temp: [36.1 ?C (97 ?F)] Temp source: Axillary (01/22 1700) Pulse: [92] Resp: [18] SpO2: [100 %] Height: [162.6 cm (5' 4")] Weight: [110.7 kg (244 lb)-111.1 kg (244 lb 14.4 oz)] BMI (calculated): [41.88-42.04] PHYSICAL EXAMINATIONS General: patient alert and in no acute distress HEENT: symmetric, negative for masses Lungs: unlabored breathing Breast: deferred Cardiology: peripheral pulses intact and regular Abdomen: soft, non-tender, non-distended, no liver, spleen or abnormal masses palpated and Gravid Extremities: no clubbing, cyanosis, or edema Neuro: patient moving all extremities, no facial droop : SVE 1/0/-3 @ 1735 REVIEW OF LABORATORY, PATHOLOGY, AND RADIOLOGY DATA Lab results: Type & Screen Lab Results Component Value Date/Time IABORH B POSITIVE 07/10/2023 02:40 PM IAT Negative 07/10/2023 02:40 PM Serologies Lab Results Component Value Date/Time VZVIGG Positive 09/12/2023 11:21 AM RUBG Positive 07/10/2023 02:40 PM SYPIGG Non-reactive 11/23/2023 03:30 PM SYPIGG Nonreactive 09/23/2016 04:15 PM HBSAG Negative 07/10/2023 02:40 PM HBSAG 0.06 07/10/2023 02:40 PM Chlamydia Lab Results Component Value Date/Time VCAA Negative 01/03/2024 03:39 PM Group B Strep Lab Results Component Value Date/Time CGB Positive (A) 01/03/2024 03:50 PM GTT Lab Results Component Value Date/Time GLUF 73 10/30/2023 08:03 AM [id number] 166 10/30/2023 09:06 AM GLU3H 104 10/30/2023 11:06 AM CBC Lab Results Component Value Date/Time HGB 10.4 (L) 01/03/2024 03:16 PM HCT 32.5 (L) 01/03/2024 03:16 PM PLT 209 01/03/2024 03:16 PM Active Hospital Problems Diagnosis Date Noted 39 weeks gestation of 01/23/2024 Positive GBS test 01/09/2024 Address intrapartum Abnormal maternal glucose tolerance, antepartum 10/26/2023 Passed 3hr GBS (group B streptococcus) UTI complicating 07/12/2023 Adenike neg Supervision of high-risk 07/10/2023 Obesity in 09/23/2016 Resolved Hospital Problems No resolved problems to display. Present on Admission: Positive GBS test Supervision of high-risk Obesity in Abnormal maternal glucose tolerance, antepartum GBS (group B streptococcus) UTI complicating 39 weeks gestation of Placenta Accreta Screening Prior ? : No Prior Uterine Surgery?: No Placenta low lying/previa in current ? : No Ultrasound suspicion of PASD in current ?: No Screening outcome: A positive screening outcome indicates a history of prior delivery or prior uterine surgery, AND the presence of either a placenta low lying/previa or ultrasound suspicion of PASD in the current . Negative screening. ASSESSMENT AND PLAN Jordan Dallas is a 29 year old at 39w0d by d/u (14w) who presents for scheduled IOL. IOL - Scheduled IOL - SVE: 3 - [place]: irregular - Plan: IOL with FB and cytotec. Desires epidural for pain relief Failed 1h GTT - 1 h 155, 3h WNL (73, 166, 133, 104) GBS Positive - GBS UTI on 06/2023, treated with negative ADENIKE - Intrapartum penicillin ordered Hx Trichomonas Hx Gonorrhea - Positive for Trich (09/12), negative ADENIKE on 10/19 - Positive for Gonorrhea (10/19), negative ADENIKE on 11/22 and 01/02 Antepartum course reviewed - 1 h 155, 3h WNL, sero negative, Rimmune, VZVimmune, B positive/IAT negative, GBS positive, Pap NILM 06/2023 - H/H, plt: 10.4 / 32.5, 209 on 01/03/24 - PP control plan: undecided - [place] RMP Fetus - Presentation on admission: cephalic - anterior placenta - EFW: 3653 gm by scan - FHT reactive and reassuring - Normal anatomy scan Informed consent discussed with the patient, including: condition, proposed care, treatments and services, alternative forms of treatment, and risks of no treatment. Details discussed around the procedures to be used, and the risks and hazards involved, potential benefits, and side effects of the patient s proposed care, treatment, and services; the likelihood of the patient achieving his or her goals; and any potential problems that might occur during recuperation. Reasonable alternative also discussed with the patient s proposed care, treatment, and services. The discussion encompasses risks, benefits, and side effects related to the alternative and risks related to not receiving the proposed care, treatment, and services. Dr. Adair was available for consultation. Kimberlyn Mcgovern APRN, CH[place]RIKA Associated attestation - Kamla Adair MD - 01/23/2024 6:28 PM CDT I was L&D faculty at time of admission and agree with the H&P as below. I was immediately available for consultation. Kamla Adair MD Maternal- Medicine Fellow (PGY-5), OBGYN Faculty [facility] Procedure Notes Date/Time Note Provider Source 2024-01-24 19:55:12 Procedure(s): INTRAUTERINE PRESSURE CATHETER PLACEMENT AND MONITORING; CONTINUOUS MONITORING (INTERNAL) Pre-Procedure Diagnose(s): Labor, prolonged latent phase Post-Procedure Diagnose(s): Labor, prolonged latent phase S: SVE unchanged since 531. However, pitocin was discontinued due to category II FHR tracing. Pitocin was resumed at 1122 and is currently infusing at 8 mu/min. Discussed options and pt desires to proceed with AROM/IUPC/FSE placement. Pt is also experiencing a new onset headache with a history of mild ranging blood pressures during admission. O: Temp: [36.3 ?C (97.4 ?F)-37.2 ?C (98.9 ?F)] Pulse: [72-93] Resp: [14-18] BP: (96-141)/(41-102) A: Procedure: SVE /-3, AROM performer for moderate amount of clear fluid. IUPC catheter inserted per package insert instructions without difficulty. Amniotic fluid return noted in IUPC catheter with no faisal red bleeding in catheter or on insertion. Pt tolerated procedure without pain or complications. Will monitor MVUs. Desire MVUs to be 200-220 to achieve adequate labor. Will reassess cervical dilation 2-3 hours after adequate MVUs achieved. Procedure: Scalp Electrode placed over the parietal bone with caution to avoid suture lines and fontanelles. FSE tracing well. Pt repositioned to high fowlers following procedure. Plan: Continuous internal and contraction monitoring Titrate Pitocin to achieve adequate MVUs Preeclampsia screening labs ordered Tylenol for headache to assess for relief Zofran for nausea/vomiting in labor [facility] 2024-01-23 20:40:40 Associated Order(s): Central Neuraxial Block Central Neuraxial Block Date/Time: 01/23/2024 8:40 PM Performed by: Candida Wood MD Authorized by: Krsiti Marsh MD Patient Location: OB End Time: 01/23/2024 8:40 PM Reason for Block: Labor analgesia Staff: Anesthesiologist: Kristi Marsh MD Resident/RETAIL GIFT CARD MERCHANDISING: Candida Wood MD Performed by: resident/RETAIL GIFT CARD MERCHANDISING Preanesthetic Checklist: anesthesia consent, IV checked, patient identified, pre-op evaluation, risks and benefits explained and timeout performed Procedure: Type of Neuraxial: Epidural Epidural Description: 1st attempt Sterility Prep cap, drape, gloves, hand hygiene and mask Sedation Level no sedation Patient Position: sitting Prep: Betadine Monitoring: heart rate, NIBP and continuous pulse ox Location: lumbar (1-5) Lumbar: L3-L4 Approach: midline Technique: catheter Guidance with: landmark technique} Epidural/Spinal [place] and/or Catheter: Epidural/Spinal Kit: BBraun Needle Type: Tuohy Needle Gauge: 17 G Needle Length: 3.5 in (8.89 cm) Needle Insertion Depth: 8.5 Catheter Type: multiport Catheter Size: 18 G Catheter at Skin Depth: 13.5 Number of Attempts: 1 Test Dose: lidocaine 1.5% with epinephrine 1-to-200,000 Dose: 3 cc Assessment: Block Outcome: a full evaluation is pending AN-ANESTHESIOLOGY [facility] 2024-01-23 18:23:07 Procedure(s): INSERT CERVICAL DILATOR Pre-Procedure Diagnose(s): Indication for care or intervention in labor or delivery Post-Procedure Diagnose(s): Indication for care or intervention in labor or delivery Images from the original note were not included. Jordan Dallas is a 29 year old female 39w0d Soto insertion: Insertion date and time: 01/23/24 @ 1815 Soto catheter inserted through cervix in usual fashion and inflated with 60 cc sterile saline. Soto bulb firmly in place inside internal os. 25 mcg cytotec placed in posterior fornix. Catheter taped to patient leg under traction. Patient tolerated procedure well. Please use the table below for: SVE 1/0/-3 CERVIX: Consistency : moderately soft; Position: median, Station: -3 Kimberlyn Mcgovern APRN, CNM [facility] Notes Date/Time Note Provider Source 2024-01-26 15:32:40 Images from the original note were not included. This note was copied from a baby's chart. Assessment (most recent) Assessment - 01/26/24 1230 General Information Visit Initial Percent of weight loss- 5 Number of voids last 24 hours- 5 Number of stools last 24 hours- 10 Mom's age (years) 29 years Gestational age 39 weeks 2 Parity 1 Living Children 1 Feeding plan Breast Attended class No Breastfeed previously No Used pump previously No plans As long as possible Planned maternity leave Stay at home mom Breast Pump Has Breast Pump Electric Financial Class WIC;Medicaid Maternal medications prior to admission vitamin;Iron Delivery method Reason for FTP Breast changes during Enlarged;Darkening of areola Periods Regular Risk factors Anemia;Obesity Drug History Yes HX of THC and meth quit with confirmation Mental health history Depression;Anxiety Breast Surgery/ History None Infant Oral Assessment Oral assessment New assessment Date of 01/25/24 Time of 0912 Infant location Mother Baby Unit Chin Normal Palate assessment Normal Tongue assessment Normal Restricted tongue motion observed Able to strip gloved finger;Able to cup finger prefers to keep tongue back in the mouth ENT consult recommended No Upper lip assessment Normal;Can flange Infant head assessment Bruise Is this a multiple ? No Breast Assessment Breast Assessment Initial Symmetry Symmetrical Size L (D-DD) Shape Rounded;Pendulous Other Soft Scars on breast: No Nipple & Areola Assessment Left Areola Pliable Right Areola Pliable Left Nipple Colostrum not visible;Intact;Everted;Elza rt;Small;Tender Right Nipple Colostrum not visible;Intact;Everted;Elza rt;Small;Compression stripe Literature Resources Resources guide Education 6 months exclusive , up to and beyond 1 year with complimentary foods; hunger cues;On-demand feeds at least 8 or more over 24 hours;Diaper counts/color;Benefits of breastmilk;Hand expression;Risk of formula supplementation;Delay of pacifier/artificial nipples up to 4 weeks;Benefits of skin to skin contact;Encouraged rooming-in;Waking techniques;Signs of an effective latch;Infant stomach size;Calming techniques;2nd day/growth spurt cluster feeds;Position changes;Breaking seal;Maternal nutrition/hydration;Lactog enesis;Nipple shield use, application, washing, storage and weaning;Burping;Benefits of breast massage and hand expression;Engorgement signs and treatment;Risks of mastitis and signs, seek medical attention immediately;Ways to increase milk supply;How to obtain pump for after discharge Handouts given Dominican Coin Counter And Wrapper Observation Pumping No Assist with latch;Mom states has painful latches Position right side Football;Infant latched effectively with nipple shield upon release milk visible in shield;Suckled in coordinated bursts;Nipple rounded upon release Position left side Football;Infant latched effectively with nipple shield upon release milk visible in shield;Suckled in coordinated bursts;Nipple rounded upon release Interventions Nipple shield XS-16mm;Placed skin to skin;Tongue training exercises;Breast massage;Taught hand expression Mother demonstrated teach back of Breast massage and hand expression;Application of nipple shield;Positioning and latching at breast Follow up Mom will call staff;[facility] warmline;WIC;[employer];Private Recommended Feeding Plan Recommended feeding plan On-demand , 8-12 times in 24 hours not to exceed 6 hours between feeds;Frequent [id number] time with parents OTHER $ SERVICES Initial Mom has a history of marijuana use during . She states she stopped with confirmation. UDS is negative at this time. Mom states that she does not plan to use marijuana further while . Discussed with mom risks of marijuana use while and that it is 8 times higher in breastmilk than in mom's blood. Secondhand smoke from marijuana has many of the same cancer causing chemicals as smoke from tobacco. Encourage not to allow smoking around baby or in the home. Mom taught that THC and marijuana gets into breast milk and may affect baby's brain. THC is stored in body fat and baby's brain and body contain a lot of fat. Since baby's brain and body may store THC for a long time, encouraged mom not to use marijuana while . It may damage baby's brain, making it hard for the child to pay attention and learn later in life. Pierre MULLIGAN, RN, IBCLC Pierre Brennan RN [facility] 2024-01-26 05:49:31 Problem: Falls, Risk of Goal: Absence of falls Outcome: Progressing as expected Problem: Discharge Planning - Goal: Adequate for discharge Outcome: Progressing as expected Goal: Mood stable Outcome: Progressing as expected Problem: Breast-feeding - Ineffective Goal: Effective breast-feeding Outcome: Progressing as expected Problem: Pain Goal: Control of pain at or below patient's documented comfort goal Outcome: Progressing as expected Goal: Reduction in pain sensation Outcome: Progressing as expected Chayo Cash RN [facility] 2024-01-25 18:26:41 Problem: Falls, Risk of Goal: Absence of falls Outcome: Progressing as expected Problem: Discharge Planning - Goal: Adequate for discharge Outcome: Progressing as expected Goal: Mood stable Outcome: Progressing as expected Problem: Breast-feeding - Ineffective Goal: Effective breast-feeding Outcome: Progressing as expected Problem: Pain Goal: Control of pain at or below patient's documented comfort goal Outcome: Progressing as expected Goal: Reduction in pain sensation Outcome: Progressing as expected Problem: Intrapartum process (including labor pain) Goal: Absence of or reduction of complications of labor Outcome: Resolved Goal: Able to cope with pain Outcome: Resolved Goal: Adequate to move to next level of care Outcome: Resolved Goal: Reduction in pain sensation Outcome: Resolved Roselyn Mendez RN [facility] 2024-01-25 10:05:02 Delivery Date: 01/25/2024 Delivery Time: 9:12 AM DELIVERY BY SECTION Date of Service: : 01/25/2024 at 9:12 AM Admitted for: PCS, Primary Lower uterine tranverse section with no extension, no BTL, Pfannenstiel, Closed with sutures, EBL 700 cc, No complications, Findings: Normal utuerus, normal bilateral ovaries and fallopian tubes. Delivery Summary Sex: male [place] Weight: 3675 g 1 Minute 5 Minute 10 Minute Totals: 8 9 Primary Indication: The patient was taken to the operating room for a primary section due to: Labor Abnormalities - Failed medical induction at 39w2d weeks. Procedures: Primary Lower uterine tranverse section Specimens Removed: Placenta Clinical Trials: None Surgeon: Sarah Clifton MD Cold Storage Superintendent Surgeon: Clari Darden MD OB Faculty: Catrachita Mcmullen MD Report: Prophylactic antibiotic, Ancef and azithromycin was given before patient was taken to OR. After arrival to the operating room patient was placed in the supine position with left lateral tilt after dosing of epidural anesthesia. Laparotomy A pfannenstiel incision was made through the anterior abdominal wall with #10 scalpel. The incision was extended sharply with the #10 scalpel through the subcutaneous tissue to the level of fascia. The fascia was entered sharply with a #10 scalpel then extended superiorly and inferiorly with digits using Misgav Ladach technique . The rectus muscles were in the midline bluntly with digits. The peritoneum was then entered bluntly. The peritoneal incision was then extended superiorly and inferiorly under direct visualization with care being taken to avoid bladder and bowel. No adhesions were noted. The peritoneal incision was enlarged bluntly by lateral traction from the surgeon's and first responder's hand. Delivery A bladder flap was developed by grasping with Cymraes forcep and enter with Metzenbaun scissor. Then sharp and blunt dissection with Metzenbaum scissor and fingers were performed. A low transverse hysterotomy was made then with #10 scalpel and extended laterally and cephalad with fingers in a low transverse fashion with Manu Ferreira technique with care being taken to avoid injury to the fetus. Amniotic fluid was noted to be clear . The head was delivered manually without aid of vaginal hand. The head was flexed and delivered through the hysterotomy incision in a non-traumatic fashion with aid of fundal pressure applied by the surgeon's assistant surgeon . The body was delivered with traction on the head along with fundal pressure. After delivery of body-bulb suction was performed from oropharynx and nostril with removal of clear amniotic fluid. Fetus was delivered in cephalic presentation. With delivery the baby, no extension was noted.Delayed cord clamping was performed for 30-60 seconds. Placenta was delivered spontaneously with steady traction on cord and manual separation of placenta from uterine wall. Closure Uterine cavity was cleaned after placental delivery with lap sponge x 2. The hysterotomy was closed in one layer with stitches starting at both angles meeting in the middle of the hysterotomy using 0 vicryl with continuous locking stitches. Hemostasis was achieved as needed with electrocautery and figure eight suture ligation. The ovaries/tubes/uterine surface were evaluated. They were found to be normal. Fascia was closed with running stitches using 0 vicryl. Hemostasis was checked for and found to be adequate. The subcutaneous tissue was irrigated and hemostasis was achieved where needed with electrocautery. Subcutaneous layer was closed with o vicryl. The skin was then closed with subcutaneous stitches using 2-0 vicryl sutures. The incision was cleaned and covered with a compression bandage and the procedure considered to be complete at this time. Intraoperative Complications: None EBL: 700 cc Uterotonics: Pitocin Disposition: The patient tolerated the procedure well. She was recovered in Obstetric PACU for close monitoring in stable condition, with a contracted uterus and normal transvaginal bleeding. The infant was sent to beside. A segment of the cord was obtained for umbilical cord gases. Cord blood gas was not available at time of operative note entered. Please see [facility] for update. The placenta was not sent to pathology. Sarah Clifton MD Obstetrics and Gynecology PGY-1 Associated attestation - Cee Barrera MD - 01/26/2024 4:37 PM CDT Present for the delivery and agree with the resident note OG-OBSTETRICS & GYNECOLOGY [facility] 2024-01-25 07:41:44 Problem: Intrapartum process (including labor pain) Goal: Absence of or reduction of complications of labor Outcome: Progressing as expected Goal: Able to cope with pain Outcome: Progressing as expected Goal: Adequate to move to next level of care Outcome: Progressing as expected Goal: Reduction in pain sensation Outcome: Progressing as expected Problem: Falls, Risk of Goal: Absence of falls Outcome: Progressing as expected Jes Valdez RN [facility] 2024-01-24 07:54:55 Problem: Intrapartum process (including labor pain) Goal: Absence of or reduction of complications of labor Outcome: Progressing as expected Goal: Able to cope with pain Outcome: Progressing as expected Goal: Adequate to move to next level of care Outcome: Progressing as expected Goal: Reduction in pain sensation Outcome: Progressing as expected Problem: Falls, Risk of Goal: Absence of falls Outcome: Progressing as expected Marii Hdez RN [facility] 2024-01-24 00:32:38 Problem: Intrapartum process (including labor pain) Goal: Absence of or reduction of complications of labor Outcome: Progressing as expected Goal: Able to cope with pain Outcome: Progressing as expected Goal: Adequate to move to next level of care Outcome: Progressing as expected Goal: Reduction in pain sensation Outcome: Progressing as expected Problem: Falls, Risk of Goal: Absence of falls 01/24/2024 0032 by Yumiko Tan RN Outcome: Progressing as expected 01/23/20242058 by Yumiko Tan RN Outcome: Progressing as expected Yumiko Tan RN [facility] 2024-01-23 20:59:33 Problem: Falls, Risk of Goal: Absence of falls Outcome: Progressing as expected [facility] 2024-01-23 20:16:06 Name/ MRN / Age / Gender: Jordan Dallas, [id number] 29 year old female BMI: Estimated body mass index is 41.88 kg/m? as calculated from the following: Height as of this encounter: 1.626 m (5' 4"). Weight as of this encounter: 110.7 kg (244 lb). Allergies: Patient has no known allergies. Last Vitals: BP Readings from Last 1 Encounters: 01/23/24 129/79 Pulse Readings from Last 1 Encounters: 01/23/24 83 SpO2 Readings from Last 1 Encounters: 01/23/24 99% Date of Surgery: 01/23/2024 Surgeon: * No surgeons listed * Procedure: CENTRAL NEURAXIAL BLOCK OR Location: [place] ANESTHESIA OUT OF OR - OR LOCATION Anesthesia Preop Eval (physical exam) Anesthesia Preop: [id number] Anesthesia History Previous Anesthetics/Airways Cardiovascular METS: 5-6 Pulmonary Negative Pulmonary ROS Neuro/Musculoskeletal Negative Neuro/Musculosketal ROS (+) Obesity GI/Hepatic Negative GI/Hepatic ROS Hematology Comments: CBCWBC (10*3/?L) Date Value 01/23/2024 12.42 (H) RBC (10*6/?L) Date Value 01/23/2024 3.96 PLT (10*3/?L) Date Value 01/23/2024 194 HGB (g/dL) Date Value 01/23/2024 10.6 (L) HCT (%) Date Value 01/23/2024 32.6 (L) (+) Anemia Renal Negative Renal ROS Comments: BMPNA (mmol/L) Date Value 06/23/2020 141 K (mmol/L) Date Value 06/23/2020 3.6 CALCIUM (mg/dL) Date Value 06/23/2020 9.0 CL (mmol/L) Date Value 06/23/2020 105 BUN (mg/dL) Date Value 06/23/2020 13 CREATININE (mg/dL) Date Value 06/23/2020 0.81 GLUCOSE (mg/dL) Date Value 06/23/2020 109 CO2 TOTAL (mmol/L) Date Value 06/23/2020 29 Skin Endo/Other Negative Endo/Other ROS 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 IOL - Scheduled IOL - SVE: 3 - [place]: irregular - Plan: IOL with FB and cytotec. Desires epidural for pain relief Failed 1h GTT - 1 h 155, 3h WNL (73, 166, 133, 104) GBS Positive - GBS UTI on 06/2023, treated with negative ADENIKE - Intrapartum penicillin ordered Hx Trichomonas Hx Gonorrhea - Positive for Trich (09/12), negative ADENIKE on 10/19 - Positive for Gonorrhea (10/19), negative ADENIKE on 11/22 and 01/02 Antepartum course reviewed - 1 h 155, 3h WNL, sero negative, Rimmune, VZVimmune, B positive/IAT negative, GBS positive, Pap NILM 06/2023 - H/H, plt: 10.4 / 32.5, 209 on 01/03/24 - PP control plan: undecided - [place] [facility] F[facility] - Presentation on admission: cephalic - anterior placenta - EFW: 3653 gm by scan - FHT reactive and reassuring - Normal anatomy scan Pediatric Pediatric N/A N/A Preoperative Medication Instructions Continue taking all prescribed medications except: DELORES inhibitors, ARBs, diuretics, all oral diabetes medications Anticoagulant Therapy: Defer to surgeons Insulin: Take 1/2 dose the night prior to surgery. Hold on DOS. Phentermine: Alert [facility] anesthesiologist SGLT2 Inhibitors: "gliflozins" to be held for 3 days prior to elective surgeries GLP1 Agonosit: stop 7 days prior to surgery MAC Cases: Continue taking DELORES inhibitors and ARBs ASA Classification ASA: 3 Labs: Chemistry - CBC 01/23/2024 - - - - 12.42 (H) 10.6 (L) 194 - - - 32.6 (L) eGFR: - Date: - ANC: 9.60 (H) Date: 01/23/2024 LFTs - Coags AST: - AP: - Prot: - Ca: - PT: - Date: - ALT: - T Sher: - Alb: - PTT: - Date: - PO4: - Date: - INR: - Date: - Cardiac Endocrine & other pBNP: - Date: - A1C: - Date: - Trop I: - Date: - POCT A1C: - Date: - CK: - Date: - TSH: - Date: - CKMB: - Date: - FT4: - Date: - LDL: - Date: - Lact: - Date: - Procal: - Date: - Respiratory -|-|-|-|- D-dimer: - ABG Date: - Date: - Miscellaneous Type and Screen: B POSITIVE Antibody: Negative Date: 01/23/2024 POCT : Positive Date: 07/10/2023 Current Medications: No outpatient medications have been marked as taking for the 01/23/24 encounter (Hospital Encounter). Previous Surgeries: Past Surgical History: Procedure Laterality Date APICOECTOMY 2009 Anesthesia Physical Exam General alert and oriented x 3 Neuro/Psych neurological nonfocal Dental no notable dental hx Abdominal (+) obesity and gravid Airway Mallampati score:II Extremity Pulmonary Other Cardiovascular cardiovascular exam normal Anesthesia Plan ASA Status: 3 Plan discussed during pre-op evaluation: General, Epidural, Spinal and CSE Anesthetic plan on DOS: Epidural AN-ANESTHESIOLOGY ANESTHESIOLOGIST [facility] 2024-01-23 18:37:49 Problem: Intrapartum process (including labor pain) Goal: Absence of or reduction of complications of labor Outcome: Progressing as expected Goal: Able to cope with pain Outcome: Progressing as expected Goal: Adequate to move to next level of care Outcome: Progressing as expected Goal: Reduction in pain sensation Outcome: Progressing as expected Elysia Henderson RN [facility] 2024-01-04 16:47:47 Patient diagnosed with anemia in by provider. Advised patient iron/vitamin C supplement has been called into her pharmacy. Educated patient on iron rich foods such as dark Green leafy vegetables, red meat, beans, peas, and iron rich cereals. Educated patient on foods high in vitamin C to assist in iron absorption such as orange juice, citrus fruits, strawberries, tomatoes, and brambila peppers. Educated patient on side effects of Iron supplement such as constipation and advised to supplement with colace as needed. Patient verbalized understanding. Heidi Serna RN 01/04/24 4:48 PM [facility] 2024-01-04 16:23:12 Please notify the patient she is anemic iron and vitamin c have been sent to her pharmacy on file. She should continue taking her pnv. LANDON Hernández 01/04/2024 4:23 PM [facility] 2023-10-30 08:00:00 Images from the original note were not included. Venipuncture collection performed by clean technique on the both anticubitus. Total of 4 attempts were made. Slight pressure and a bandage/dressing were applied to the site(s). The patient experienced no complications. The following specimens were processed according to instructions and sent to [facility] laboratories per lab order on 10/30/23: LT BLUE SST 4 RED LAV PPT DK GREEN (LiHep) DK GREEN (SodH) LIMON DK BLUE (K2) DK BLUE (S) ACD Blood Culture NIPT/NTD [facility] 2023-10-26 13:37:45 Patient informed of results and need for 3 hr gtt. Lab appt made for 10/30/2023, informed to be fasting, verbalized understanding. Marga Reyez COGNOS BI ADMINISTRATOR [facility] 2023-10-26 12:55:05 Please notify the patient she failed her 1 hr gtt. She needs to come in for a fasting 3hr gtt LANDON Hernández 10/26/2023 12:55 PM T [facility] 2023-10-23 15:10:58 Notified the patient of her positive STI results gonorrhea. Notified the patient her medication has been sent to her pharmacy on file. Educated patient she should complete the entire course, advised patient to practice safe sex practices and to remain abstinent for at least 1-2 weeks post treatment. Patient declines to have partner treated. Offered std pamphlet for partner education. Patient declinedstd pamphlet to be mailed to partner. Advised patient on HIV testing if she has not recently been tested. Advised ADENIKE appointment in 3 months. Pt verbalized understanding. Marga Reyez LVN [facility] 2023-10-23 14:36:07 Pt tested positive for gonorrhea. Please notify patient of results and she needs to be seen in clinic for treatment with rocephin. Her partner needs to be notified and should be encouraged to follow up with his PCP/health department or may come to [facility] for treatment. If the partner is unwilling or unable to come to the clinic, PDPT/EPT can be initiated. If the patient s partner has no allergies to antibiotics and does not have any abdominal pain, pelvic pain, or genital/groin pain, you may route a prescription for cefixime 800 mg PO once to the partner s choice of pharmacy and mail a copy of the STD handouts to the patient or may mail to the partner for delivery to the patient. If the patient reports her partner is symptomatic he should be encouraged to seek treatment immediately and in person. The patient should have a follow up STD screen in 3 months which has been future ordered (if will need ADENIKE in 3-4 weeks). [facility] 2023-09-14 14:15:57 Please ask her how she completed the meds, (all 4 tabs at once) if so I can repeat the ADENIKE at her next visit LANDON Hernández 09/14/2023 2:16 PM TRANSIT OPERATOR [facility] 2023-09-14 12:44:40 Patient informed of results, stated she was positive for trichomonas on 07/19/2023 and took medication prescribed. Patient stated she has not had any intercourse since she took her medication. Informed will route to provider to see if she wants patient to have ADENIKE 3 months from first dx in 08/05 or if she needs to take medication. Reyez LVN [facility] 2023-09-14 11:52:06 Patient is calling back. Please contact patient. [phone] (home) TRANSIT OPERATOR Mariamsam Casillas [facility] 2023-09-14 08:19:04 Attempted to call patient, no answer, left vm. Reyez LVN [facility] 2023-09-13 16:38:27 Please notify the patient of her positive STI results. Please notify the patient her medication has been sent to her pharmacy on file. She should complete the entire course.Please advise her on safe sex practices and to remain abstinent for at least 1-2 weeks post treatment. Her partner can be treated and tested per protocol. If she is not she will need a ADENIKE in 3 months, and advise her on HIV testing if she has not recently been tested. LANDON Hernández 09/13/2023 4:38 PM [facility] 2023-09-13 13:54:55 Patient educated on positive results for VZV antibody screen, verbalized understanding. Reyez LVN [facility] 2023-09-13 12:59:40 Jordan Dallas is a 28 year old female Pt is calling requesting to speak with a nurse to discuss most recent lab results. Please contact pt at [phone]. Grigsby [facility] 2023-08-15 11:15:00 Pt was coming in for a Phoenix Kit. Phoenix Kit was not provided to pt from Provider. Called clinic in [place] who said they did not have any kit for pt. Natalie Gomez 08/15/2023 11:13 AM Gomez [facility]
--- NOTE | 2024-04-10 13:12 | RAD REPORT ---
EXAM DESCRIPTION: US - Abdomen Exam Limited - 04/10/2024 1:06 pm CLINICAL HISTORY: ABD PAIN COMPARISON: No comparisons FINDINGS: The gallbladder demonstrates extensive shadowing gallstones. No pericholecystic fluid or g allbladder wall thickening. The common bile duct is normal measuring 2 mm. The liver demonstrates no findings of intrahepatic biliary dilatation. IMPRESSION: Cholelithiasis.
[2024-04-10] MEDS ORDERED: MORPHINE 4 MG/ML SYR ONE (13:18)
[2024-04-10] MEDS ORDERED: ONDANSETRON 4 MG/2 ML VIAL ONE (13:18)
[2024-04-10 13:24] LABS: Absolute Basophils 0.1 K/uL (0-0.5); Absolute Eosinophils 0.3 K/uL (0-0.5); Absolute Lymphocytes (CBC) 1.6 K/uL (0.7-4.9); Absolute Monocytes 0.6 K/uL (0.1-1.3); Absolute Neutrophil 6.5 K/uL (1.8-8.0); Basophils % 0.7 % (0-1.3); Eosinophils % 3.5 % (0-4.4); Hematocrit 35.3 % (36.0-45.0); Lymphocytes % 17.6 % (15.3-44.8); MCH 22.7 pg (27.0-35.0); MCHC 31.1 g/dL (32.0-36.0); MCV 72.9 fL (80-100); MPV 8.2 fL (7.6-11.3); Monocytes % 6.3 % (3.3-12.3); Neutrophils % 71.9 % (41.7-73.7); Platelets 279 thou/uL (152-406); RBC Red Blood Cell Count 4.84 M/uL (3.86-4.86); Red Cell Distribution Width 16.6 % (12.1-15.2)
[2024-04-10 13:41] LABS: Albumin 3.5 g/dL (3.4-5.0); Albumin/Globulin Ratio 0.8 (1.1-1.8); Anion Gap 7.8 mEq/L (5.0-15.0); Bilirubin Total 0.3 mg/dL (0.2-1.0); Globulin 4.4 g/dL (2.3-3.5); Potassium 3.8 mEq/L (3.5-5.1); Protein, Total 7.9 g/dL (6.4-8.2)
--- NOTE | 2024-04-10 14:49 | RAD REPORT ---
EXAM DESCRIPTION: MRI - Cholangiogram - 04/10/2024 2:38 pm CLINICAL HISTORY: flank pain Headache, drowsiness COMPARISON: Abdomen Exam Limited dated 04/10/2024 FINDINGS: Three-dimensional MRCP was performed using maximum intensity projection reconstruction on the same work station. No intrahepatic biliary tree dilatation is seen. The common bile duct is normal caliber without evide nce of retained stone, stricture or mass. The pancreatic duct is not pathologically dilated. Extensive cholelithiasis. Limited T2 sequences through the abdomen demonstrates no bulky adenopathy, significant free fluid or abscess. IMPRESSION: Extensive cholelithiasis seen. No pathologic biliary dilatation.
--- NOTE | 2024-04-10 15:20 | EDPHYS ---
Physician Documentation [facility] Name: Angelina Shultz Age: 29 yrs Sex: Female : 1995 Arrival Date: 04/10/2024 Time: 12:38 Bed 3 Private MD: ED Physician Jax Oates HPI: 04/10 12:53 This 29 yrs old Female presents to ER via Ambulatory with complaints of abd pain. rn 12:53 The patient presents with abdominal pain in the right upper quadrant. Onset: The rn symptoms/episode began/occurred at an unknown time. The symptoms do not radiate. Associated signs and symptoms: Pertinent positives: nausea, Pertinent negatives: blood in stools, chest pain, constipation, fever. Modifying factors: The symptoms are alleviated by nothing, the symptoms are aggravated by nothing. Severity of pain: At its worst the pain was moderate in the emergency department the pain has improved. The patient has experienced similar episodes in the past. Patient reports diagnosed with gallbladder stones this year. Patient reports seen in [facility] and diagnosed with cholelithiasis. Has been having attacks more frequently now. No fever. Pain last for a few hours and resolves. Pain already improving that started this morning.. 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 - Infectious Disease History:: Denies. - Social history:: Smoking status: Patient denies any tobacco usage or history of. - Family history:: not pertinent. - Hospitalizations: : No recent hospitalization is reported. ROS: 12:53 Constitutional: Negative for fever, chills, and weight loss, Cardiovascular: Negative rn for chest pain, palpitations, and edema, Respiratory: Negative for shortness of breath, cough, wheezing, and pleuritic chest pain, Abdomen/GI: + abd pain Exam: 12:53 Constitutional: This is a well developed, well nourished patient who is awake, alert, rn and in no acute distress. Cardiovascular: Regular rate and rhythm. No pulse deficits. Abdomen/GI: Soft, mild right upper quadrant tenderness with negative Rose. Vital Signs: 12:45 BP 154 / 97; Pulse 65; Resp 17; Temp 97.3; Pulse Ox 99% ; Weight 99.79 kg; Height 5 ft. ll1 3 in. ; Pain 6/10; 15:49 BP 142 / 81; Pulse 81; Resp 18; Temp 97.9; Pulse Ox 100% on R/A; kj2 12:45 Body Mass Index 38.97 (99.79 kg, 160.02 cm) ll1 12:45 Pain Scale: Adult ll1 MDM: 12:46 Patient medically screened. rn 15:18 Differential diagnosis: cholecystitis, Cholelithiasis, gastritis, gastroesophageal rn reflux disease, non-specific abd pain, pancreatitis, Peptic Ulcer Disease, Perf. Duodenal Ulcer, Perf. Gastric Ulcer. Data reviewed: vital signs, nurses notes, lab test result(s), radiologic studies, MRI, ultrasound, and as a result, I will discharge patient. Consideration of Admission/Observation Escalation of care including admission/observation considered. Admission considered when elevated alk phos returned, instead obtained MRCP which is negative for choledocholithiasis or abnormal biliary dilatation.. Counseling: I had a detailed discussion with the patient and/or guardian regarding the historical points, exam findings, and any diagnostic results supporting the discharge/admit diagnosis, lab results, radiology results, the need for outpatient follow up, to return to the emergency department if symptoms worsen or persist or if there are any questions or concerns that arise at home. Special discussion: I discussed with the patient/guardian in detail that at this point there is no indication for admission to the hospital. It is understood, however, that if the symptoms persist or worsen the patient needs to return immediately for re-evaluation. Based on the history and exam findings, there is no indication for further emergent testing or inpatient evaluation. I discussed with the patient/guardian the need to see the general surgeon for further evaluation of the symptoms. ED course: No acute findings on imaging or blood work. MRCP negative. No indication for emergent admission or need for cholecystectomy. Will discharge home with general surgery follow-up.. 04/10 12:50 Order name: CBC with Diff; Complete Time: 13:51 rn 04/10 12:50 Order name: CMP; Complete Time: 13:51 rn 04/10 12:50 Order name: Lipase; Complete Time: 13:51 rn 04/10 12:50 Order name: US Abdomen Limited rn 04/10 14:02 Order name: Cholangiogram EDHI 04/10 12:50 Order name: IV Saline Lock; Complete Time: 13:57 rn 04/10 12:50 Order name: Labs collected and sent; Complete Time: 13:57 rn Administered Medications: 13:24 Drug: morphine IVP or IV 4 mg IVP once over 4 mins Route: IVP; Infused Over: 4 mins; ph Site: right antecubital; 13:40 Follow up: Response: No adverse reaction; Pain is decreased; RASS: Alert and Calm (0) ph Disposition Summary: 04/10/24 15:19 Discharge Ordered Notes: Location: Home rn Problem: new rn Symptoms: have improved rn Condition: Stable rn Diagnosis - Other cholelithiasis without obstruction rn Followup: rn - With: Juan Kennedy MD - When: As needed - Reason: Recheck today's complaints, Re-evaluation by your physician Discharge Instructions: - Discharge Summary Sheet rn - Cholelithiasis rn Forms: - Medication Reconciliation Form rn - Antibiotic international editorial producer - Prescription Opioid Use rn - Patient Portal Instructions rn - Leadership Thank You Letter rn Prescriptions: - ondansetron 4 mg Oral Tablet,disintegrating - take 1 tablet ORAL route every 8 hours As needed; 12 tablet; Refills: 0, rn Product Selection Permitted - Tramadol 50 mg Oral Tablet - take 1 tablet ORAL route every 8 hours as needed; 12 tablet; Refills: 0, rn Product Selection Permitted Signatures: Dispatcher [employer] Jax Collins MD MD rn Hall, Patricia, RN RN ph Lewis, Lynsay, RN RN ll1
--- NOTE | 2024-04-10 15:20 | ER ---
Nurse's Notes [facility] Name: Angelina Shultz Age: 29 yrs Sex: Female : 1995 Arrival Date: 04/10/2024 Time: 12:38 Bed 3 Private MD: Diagnosis: Other cholelithiasis without obstruction Presentation: 04/10 12:45 Chief complaint: Patient states: Diagnosed with gallstones last week. Has RUQ abdominal ll1 pain. +nausea, No fever. Coronavirus screen: Client denies travel out of the [place] in the last 14 days. At this time, the client does not indicate any symptoms associated with coronavirus-19. Ebola Screen: Patient denies travel to an Ebola-affected area in the 21 days before illness onset. Initial Sepsis Screen: Does the patient meet any 2 criteria? No. Patient's initial sepsis screen is negative. Does the patient have a suspected source of infection? No. Patient's initial sepsis screen is negative. Risk Assessment: Do you want to hurt yourself or someone else? Patient reports no desire to harm self or others. Onset of symptoms was March 10, 2024. 12:45 Method Of Arrival: Ambulatory ll1 12:45 Acuity: JUANA 3 ll1 Triage Assessment: 12:48 General: Appears uncomfortable, Behavior is calm, cooperative, appropriate for age. ll1 Pain: Complains of pain in abdomen Pain currently is 6 out of 10 on a pain scale. GI: Reports upper abdominal pain, nausea. 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 - Infectious Disease History:: Denies. - Social history:: Smoking status: Patient denies any tobacco usage or history of. - Family history:: not pertinent. - Hospitalizations: : No recent hospitalization is reported. Screenin:44 [facility] ED Fall Risk Assessment (Adult) History of falling in the last 3 months, ph including since admission No falls in past 3 months (0 pts) Confusion or Disorientation No (0 pts) Intoxicated or Sedated No (0 pts) Impaired Gait No (0 pts) Mobility Assist Device Used No (0 pt) Altered Elimination No (0 pt) Score/Fall Risk Level 0 - 2 = Low Risk Oriented to surroundings, Maintained a safe environment, Hourly rounding (assess needs \T\ fall precautionary measures) done. Abuse screen: Denies threats or abuse. Denies injuries from another. Nutritional screening: No deficits noted. Tuberculosis screening: No symptoms or risk factors identified. Assessment: 13:43 General: Appears in no apparent distress. comfortable. Pain: Complains of pain in right ph upper quadrant. Neuro: Level of Consciousness is awake, alert, obeys commands, Oriented to person, place, time, situation. Cardiovascular: Capillary refill < 3 seconds in bilateral fingers Patient's skin is warm and dry. Respiratory: Airway is patent Respiratory effort is even, unlabored. GI: Abdomen is non-distended, Bowel sounds present X 4 quads. Reports upper abdominal pain. Derm: Skin is pink, warm \T\ dry. Musculoskeletal: Circulation, motion, and sensation intact. Range of motion: intact in all extremities. 15:58 Reassessment: Patient appears in no apparent distress at this time. Patient and/or ph family updated on plan of care and expected duration. Pain level reassessed. Patient is alert, oriented x 3, equal unlabored respirations, skin warm/dry/pink. 16:07 Reassessment: Patient appears in no apparent distress at this time. Patient and/or kj2 family updated on plan of care and expected duration. Pain level reassessed. Patient is alert, oriented x 3, equal unlabored respirations, skin warm/dry/pink. Vital Signs: 12:45 BP 154 / 97; Pulse 65; Resp 17; Temp 97.3; Pulse Ox 99% ; Weight 99.79 kg; Height 5 ft. ll1 3 in. ; Pain 6/10; 15:49 BP 142 / 81; Pulse 81; Resp 18; Temp 97.9; Pulse Ox 100% on R/A; kj2 12:45 Body Mass Index 38.97 (99.79 kg, 160.02 cm) ll1 12:45 Pain Scale: Adult ll1 ED Course: 12:41 Patient arrived in ED. ra3 12:42 Arm band placed on. ll1 12:46 Jax Oates MD is Attending Physician. rn 12:46 Triage completed. ll1 13:07 Giovanna Corea RN is Primary Nurse. ph 13:08 US Abdomen Limited In Process Unspecified. EDMS 13:24 Initial lab(s) drawn, by me, sent to lab. Inserted saline lock: 22 gauge in right ph antecubital area, using aseptic technique. Blood collected. Flushed with 10 mL NS. 13:44 Patient has correct armband on for positive identification. Bed in low position. Call ph light in reach. Pulse ox on. NIBP on. Door closed. Noise minimized. Warm blanket given. Pillow given. 14:17 Cholangiogram In Process Unspecified. EDMS 15:19 Juan Kennedy MD is Referral Physician. rn 15:47 Provided Education on: call light, fall precautions. kj2 15:47 No provider procedures requiring assistance completed. kj2 15:48 IV discontinued, intact, bleeding controlled, No redness/swelling at site. Pressure kj2 dressing applied. Administered Medications: 13:24 Drug: morphine IVP or IV 4 mg IVP once over 4 mins Route: IVP; Infused Over: 4 mins; ph Site: right antecubital; 13:40 Follow up: Response: No adverse reaction; Pain is decreased; RASS: Alert and Calm (0) ph Medication: 13:44 VIS not applicable for this client. ph Outcome: 15:19 Discharge ordered by MD. rn 15:47 Discharged to home ambulatory, kj2 15:47 Condition: stable 15:48 Discharge instructions given to patient, Instructed on discharge instructions, follow kj2 up and referral plans. medication usage, Demonstrated understanding of instructions, follow-up care, medications, Prescriptions given X 2, 15:58 Patient left the ED. ph Signatures: Dispatcher [employer] EDMS Jax Oates MD MD rn Hall, Patricia, RN RN ph Yasmin Kirby RN RN naren1 Talia Pereira ra3 Jessy Collins RN RN kj2 Corrections: (The following items were deleted from the chart) 12:47 12:45 Pulse 65bpm; Resp 17bpm; Pulse Ox 99%; Temp 97.3F; 99.79 kg; Height 5 ft. 3 in.; ll1 BMI: 38.9; Pain 6/10, Adult; ll1 16:11 16:07 BP 103 / 79; Pulse 64bpm; Resp 18bpm; Pulse Ox 97% RA; kj2 ph
[2024-04-10 16:28] VITALS: BP 142/81; TEMP 97.9; O2SAT 100
== END 2024-04-10 15:58 | disposition home or self-care (01) ==
LOC: ER 12:38
DX: K80.80 Other cholelithiasis without obstruction (principal)
CPT/HCPCS: 85025; 36415; 83690; 80053; 74181; 76705; J2405